=== PATIENT | female | born 1935 | race Caucasian/White ===

== ENCOUNTER 2018-09-07 05:28 | Inpatient (IN) | payer MEDICARE, MEDICAID | END 2018-09-10 15:15 | LOC: PAS IN 05:28 → ORTHO 4S 11:25 | PROC: 0SRD0J9 Replacement of Left Knee Joint with Synthetic Substitute, Cemented, Open Approach (ICD-10-PCS; principal; 2018-09-07 07:12) | DX: M17.12 Unilateral primary osteoarthritis, left knee (principal); I69.351 Hemiplegia and hemiparesis following cerebral infarction affecting right dominant side ==

== ENCOUNTER 2018-09-27 11:54 | Emergency (ER) | payer MEDICARE, MEDICAID ==
[~2018-09-27] VITALS: Ht 162.6 cm; Wt 90.9 kg
[~2018-09-27 11:54] MED LIST: ACET-812 PO; AMIO100T4 PO; ATOR10TA87 PO; CITA-311 PO; COU5T PO; NITR50CA4 PO; WARF10TA50 PO
[2018-09-27] MEDS ORDERED: COU5T PO ×2 (12:51)
[2018-09-27] MEDS ORDERED: GABA-532 PO (12:54)
[2018-09-27] MEDS ORDERED: LACTC PO (12:54)
[2018-09-27] MEDS ORDERED: CELE-193 PO (12:54)
[2018-09-27] MEDS ORDERED: MULT1CAP44 PO (13:02)
[2018-09-27] MEDS ORDERED: HYDR-4353 PO ×2 (13:02)
[2018-09-27 13:11] LABS: BASOPHILS % (AUTO) 0.3 % (0-1); EOSINOPHILS % (AUTO) 0.9 % (0-6); LYMPHOCYTES # (AUTO) 0.8 X10'3 (1.1-4.8); LYMPHOCYTES % (AUTO) 15.2 % (21-51); MEAN CORPUSCULAR HGB CONC 32.2 g/dL (33.0-36.5); MEAN CORPUSCULAR VOLUME 90.2 FL (78-98); MONOCYTES # (AUTO) 0.4 X10'3 (0-0.9); MONOCYTES % (AUTO) 8.1 % (2-12); NEUTROPHILS # (AUTO) 3.7 X10'3 (1.8-7.7); NEUTROPHILS % (AUTO) 75.5 % (42-75); PLATELET COUNT 308 X10'3 (140-440); RED BLOOD COUNT 3.43 X10'6 (4.20-5.60); RED CELL DISTRIBUTION WIDTH 16.6 % (11.5-14.5); WHITE BLOOD COUNT 4.9 X10'3 (4.5-11.0)
[2018-09-27 13:25] LABS: ALANINE AMINOTRANSFERASE 32 U/L (12-78); ALBUMIN 3.2 G/DL (3.4-5.0); ALKALINE PHOSPHATASE 95 IU/L (46-116); ANION GAP 9 (8-16); ASPARTATE AMINO TRANSFERASE 21 U/L (10-37); BILIRUBIN,TOTAL 0.5 MG/DL (0.1-1.0); BLOOD UREA NITROGEN 13 MG/DL (7-18); BUN/CREATININE RATIO 15.5 (6.6-38.0); CALCIUM 8.8 MG/DL (8.5-10.1); CHLORIDE 102 MMOL/L (99-107); CREATININE 0.84 MG/DL (0.40-0.90); GLUCOSE 104 MG/DL (70-104); POTASSIUM 4.1 MMOL/L (3.5-5.1); SODIUM 138 MMOL/L (135-145); TOTAL CARBON DIOXIDE 27.4 MMOL/L (24-32); TOTAL PROTEIN 6.5 G/DL (6.4-8.2); eGFR 65 ML/MIN
[2018-09-27 13:43] LABS: PROTHROMBIN TIME 48.5 SECONDS (9.0-12.0)
[2018-09-27 13:44] LABS: INR 5.2 INR; PARTIAL THROMBOPLASTIN TIME 50 SECONDS (22-32)
[2018-09-27 14:06] VITALS: BP 132/76
[2018-09-27] MEDS ORDERED: SENN-162 PO (14:09)
[2018-09-27] MEDS ORDERED: ASCO500C15 PO (14:09)
[2018-09-27] MEDS ORDERED: CRAN3875 PO (14:09)
--- NOTE | 2018-09-27 14:28 | NUR ---
assisted pt with a bedpan. she is moving well to assist. CT came to take her to scan but were in the middle of doing a bedpan. technical solutions consultant states she will come back in 10 min
[2018-09-27] MEDS ORDERED: HYDROcodone/acetaminophen 10/325mg tab PO ONE (15:25)
== END 2018-09-27 17:06 | disposition home or self-care (01) ==
LOC: ER 11:54
DX: S72.492A Other fracture of lower end of left femur, initial encounter for closed fracture (principal); R79.1 Abnormal coagulation profile; I48.91 Unspecified atrial fibrillation; F41.9 Anxiety disorder, unspecified; M19.90 Unspecified osteoarthritis, unspecified site; Z96.652 Presence of left artificial knee joint; Z79.899 Other long term (current) drug therapy; Z79.01 Long term (current) use of anticoagulants; X58.XXXA Exposure to other specified factors, initial encounter; Y93.89 Activity, other specified; Y92.89 Other specified places as the place of occurrence of the external cause; Y99.8 Other external cause status
CPT/HCPCS: 29505; 36415; 73564; 73700; 80053; 85025; 85610; 85730; 93971; 99285

== ENCOUNTER 2018-12-30 09:22 | Inpatient (IN) | payer MEDICARE, MEDICAID ==
[2018-12-24 12:47] LABS: BASOPHILS % (AUTO) 0.7 % (0-1); EOSINOPHILS # (AUTO) 0.2 X10'3 (0-0.9); EOSINOPHILS % (AUTO) 4.6 % (0-6); LYMPHOCYTES # (AUTO) 1.1 X10'3 (1.1-4.8); LYMPHOCYTES % (AUTO) 27.1 % (21-51); MEAN CORPUSCULAR HEMOGLOBIN 28.9 PG (27.0-31.0); MEAN CORPUSCULAR HGB CONC 33.2 g/dL (33.0-36.5); MEAN CORPUSCULAR VOLUME 86.9 FL (78-98); MEAN PLATELET VOLUME 9.1 FL (7.4-10.4); MONOCYTES # (AUTO) 0.3 X10'3 (0-0.9); MONOCYTES % (AUTO) 6.4 % (2-12); NEUTROPHILS # (AUTO) 2.5 X10'3 (1.8-7.7); NEUTROPHILS % (AUTO) 61.2 % (42-75); PRE OP HEMATOCRIT 32.7 % (35.0-45.0); PRE OP PLATELET COUNT 183 X10'3 (140-440); RED BLOOD COUNT 3.77 X10'6 (4.20-5.60); RED CELL DISTRIBUTION WIDTH 17.3 % (11.5-14.5)
[2018-12-24 12:48] LABS: CLARITY,URINE SLIGHTLY CLOUDY (Clear); COLOR,URINE YELLOW (Yellow); GLUCOSE, URINE NEGATIVE (Neg); KETONES,URINE NEGATIVE (Neg); LEUKOCYTE ESTERASE ,URINE MODERATE (Neg); NITRITES, URINE POSITIVE (Neg); OCCULT BLOOD,URINE SMALL (Neg); PROTEIN,URINE NEGATIVE (Neg); UROBILINOGEN,URINE 0.2 E.U/dL (0.2-1.0)
[2018-12-24 12:49] LABS: PRE OP HEMOGLOBIN 10.9 g/dL (12.0-16.0)
[2018-12-24 12:55] LABS: UA COLLECTION TYPE CLN CATCH MIDSTREAM
[2018-12-24 12:57] LABS: BACTERIA,URINE 4+ /HPF (Neg); MUCUS STRANDS NONE SEEN /LPF (Neg); SQUAMOUS EPITHELIAL CELL,UR FEW /LPF (FEW); WBC CLUMPS,URINE MODERATE /HPF (NEGATIVE); WBC,URINE TNTC /HPF (0-4)
[2018-12-24 12:58] LABS: PRE OP PROTIME 18.1 SECONDS (9.0-12.0)
[2018-12-24 12:59] LABS: PRE OP INR 1.8 INR
[2018-12-24 13:00] LABS: ALBUMIN 3.9 G/DL (3.4-5.0); ALBUMIN/GLOBULIN RATIO 1.2 (1.1-1.5); ALKALINE PHOSPHATASE 103 IU/L (46-116); BLOOD UREA NITROGEN 13 MG/DL (7-18); BUN/CREATININE RATIO 17.3 (6.6-38.0); CHLORIDE 103 MMOL/L (99-107); CREATININE 0.75 MG/DL (0.40-0.90); PRE OP ALT 18 U/L (30-65); PRE OP ANION GAP 5 (8-16); PRE OP AST 17 U/L (10-37); PRE OP BILIRUB, TOTAL 0.5 MG/DL (0.0-1.0); PRE OP GLUCOSE 92 MG/DL (70-104); PRE OP POTASSIUM 3.6 MMOL/L (3.4-5.1); PRE OP SODIUM 139 MMOL/L (135-145); TOTAL CARBON DIOXIDE 30.7 MMOL/L (24-32); TOTAL PROTEIN 7.2 G/DL (6.4-8.2); eGFR 74 ML/MIN
[~2018-12-30] VITALS: Ht 162.6 cm; Wt 86.2 kg
[2018-12-30] VITALS (19 sets, daily range): BP systolic 87–143; BP diastolic 34–65
[~2018-12-30 09:22] MED LIST changes: +ACET-2119 PO; -ACET-812 PO; +CELE-193 PO; +FURO80TA87 PO; +GABA-532 PO; +HYDR-4353 PO; +LIDO700A47 TOP; +POLY17PO10 PO; +POTA10TA10 PO; -WARF10TA50 PO; +acetaminophen 325mg tablet PO ONE; +celeCOXIB 100mg capsule PO ONE; +famotidine 20mg tablet PO ONE; +gabapentin 300mg capsule PO ONE; +metoclopramide 5 mg/ml inj IV ONE; +ringers solution, lacted 1,000 ML IV SCH; +tranexamic acid inj. 1,000 MG in normal saline 100 ML IV ONE
[2018-12-30] MEDS ORDERED: vancomycin inj 1,500 MG in normal saline 300ml IV soln IV ONE (10:00)
[2018-12-30] MEDS ORDERED: VANCOMYCIN IV ONE (10:00)
[2018-12-30] MEDS ORDERED: cefazolin/dext.iso 2gm/100 ML IV ONE (10:00)
[2018-12-30] MEDS ORDERED: NORMAL SALINE IV ONE (10:00)
[2018-12-30 10:24] LABS: PRE OP INR 1.1 INR; PRE OP PROTIME 10.7 SECONDS (9.0-12.0)
[2018-12-30] MEDS ORDERED: ENOX80DI8 SQ (10:42)
[2018-12-30] MEDS ORDERED: epiNEPHrine 1 mg/ml inj ONE (11:12)
[2018-12-30] MEDS ORDERED: ROPIVAcaine 0.5% (5mg/ml) 30ml vial ONE ×2 (11:12→14:53)
[2018-12-30] MEDS ORDERED: vancomycin 1,000mg inj ONE (11:12)
[2018-12-30] MEDS ORDERED: ketorolac trometh. 30mg/ml inj. ONE (11:12)
[2018-12-30] MEDS ORDERED: tetracaine 1% (10mg/ml) pres. free inj. ONE (12:22)
[2018-12-30] MEDS ORDERED: fentaNYL/PF 50MCG/1 ML 2ML syringe ONE (12:26)
[2018-12-30] MEDS ORDERED: MIDAZolam 1mg/ml 10ml vial ONE (12:26)
[2018-12-30] MEDS ORDERED: morphine /PF 1mg/ml 10ml inj. ONE (12:26)
[2018-12-30] MEDS ORDERED: HYDROmorphone inj. 0.5 MG/0.5 ML DISP.SYRIN IV PRN (12:30)
[2018-12-30] MEDS ORDERED: bisacodyl 10mg suppository rectal RC PRN (12:30)
[2018-12-30] MEDS ORDERED: HYDROmorphone 1 mg/ml syringe IV PRN (12:30)
[2018-12-30] MEDS ORDERED: ondansetron/PF 4mg/2ml inj IV PRN ×3 (12:30→13:50)
[2018-12-30] MEDS ORDERED: diphenhydrAMINE 25mg capsule PO PRN ×2 (12:30)
[2018-12-30] MEDS ORDERED: magnesium hydroxide 30ml (MOM) UD suspension PO PRN (12:30)
[2018-12-30] MEDS ORDERED: potassium chloride 10mEq ER tablet PO PRN (12:30)
[2018-12-30] MEDS ORDERED: acetaminophen 325mg tablet PO PRN (12:30)
[2018-12-30] MEDS: gabapentin 300mg capsule PO SCH ×2 (13:00→20:32)
[2018-12-30] MEDS ORDERED: naloxone 2mg/2ml inj 2 MG in normal saline 500ml IV soln 500 ML IV PRN (13:48)
[2018-12-30] MEDS ORDERED: ringers solution, lacted 1,000 ML IV SCH (13:48)
[2018-12-30] MEDS ORDERED: diphenhydrAMINE 50 mg/ml inj IV PRN (13:50)
[2018-12-30] MEDS ORDERED: meperidine/PF 25mg/ml syringe IV PRN ×3 (13:50)
[2018-12-30] MEDS ORDERED: morphine 4 MG/ML inj SYRINge IV PRN ×2 (13:50)
[2018-12-30] MEDS ORDERED: proCHLORperazine 10 MG/2 ml inj IV PRN (13:50)
[2018-12-30] MEDS: ROPIVAcaine 0.2%/PF PAIN PUMP 400 ML IJ SCH (13:53)
--- NOTE | 2018-12-30 15:30 | NUR ---
Received from OR via bed, accompanied by Anesthesiologist. Report received. Initial physical assessment done and recorded.
--- NOTE | 2018-12-30 17:00 | NUR ---
Discharge criteria met, report to receiving floor. Transferred to room in stable condition.
[2018-12-30] MEDS: potassium cl 20mEq in 1/2 NS 1,000 ML IV SCH ×2 (17:54→20:30)
--- NOTE | 2018-12-30 18:15 | NUR ---
Patient in room ORTHO 4021B. I have received report from SIMEON Field and had the opportunity to ask questions and assume patient care.
--- NOTE | 2018-12-30 18:15 | NUR ---
Problems reprioritized. Patient report given, questions answered & plan of care reviewed with Whit dior RN.
[2018-12-30] MEDS: cefazolin/dext.iso 2gm/100ml 100 ML IV SCH ×2 (18:23→23:00)
[2018-12-30] MEDS ORDERED: tranexamic acid inj. 900 MG in normal saline 100ml IV soln 100 ML IV ONE (18:30)
[2018-12-30] MEDS ORDERED: normal saline 500ml IV soln 500 ML IV ONE (18:50)
[2018-12-30] MEDS: ascorbic acid 500mg tablet PO SCH (19:27)
[2018-12-30] MEDS: oxyCODONE/APAP 5-325mg tablet PO PRN ×2 (19:28→23:07)
[2018-12-30 19:39] LABS: HEMATOCRIT 24.9 % (35.0-45.0); HEMOGLOBIN 8.1 g/dl (12.0-16.0); MEAN CORPUSCULAR HGB CONC 32.7 g/dL (33.0-36.5); MEAN CORPUSCULAR VOLUME 88.7 FL (78-98); PLATELET COUNT 120 X10'3 (140-440); RED BLOOD COUNT 2.81 X10'6 (4.20-5.60); RED CELL DISTRIBUTION WIDTH 17.3 % (11.5-14.5); WHITE BLOOD COUNT 7.5 X10'3 (4.5-11.0)
[2018-12-30] MEDS: atorvastatin 10mg tablet PO SCH (20:32)
[2018-12-30] MEDS: nitrofurantoin macrocrystal 50mg capsule PO SCH (20:33)
[2018-12-30] MEDS: sennosides 8.6mg tablet PO SCH (20:33)
[2018-12-31] MEDS ORDERED: VANCOMYCIN IV ONE ×2
[2018-12-31] MEDS ORDERED: NORMAL SALINE IV ONE ×2
[2018-12-31 02:02] VITALS: BP 121/50
[2018-12-31] MEDS: potassium cl 20mEq in 1/2 NS 1,000 ML IV SCH ×4 (04:30→22:16)
[2018-12-31] MEDS: oxyCODONE/APAP 5-325mg tablet PO PRN ×5 (05:00→22:33)
[2018-12-31 06:00] VITALS: BP 131/53
--- NOTE | 2018-12-31 06:15 | NUR ---
Patient in room ORTHO 4021. I have received report from MOISES HENDRIX and had the opportunity to ask questions and assume patient care.
--- NOTE | 2018-12-31 06:23 | NUR ---
Problems reprioritized. Patient report given, questions answered & plan of care reviewed with SIMEON Kaur.
[2018-12-31 07:03] LABS: BASOPHILS % (AUTO) 0.3 % (0-1); EOSINOPHILS % (AUTO) 0 % (0-6); HEMATOCRIT 26.6 % (35.0-45.0); HEMOGLOBIN 8.5 g/dl (12.0-16.0); LYMPHOCYTES # (AUTO) 0.4 X10'3 (1.1-4.8); LYMPHOCYTES % (AUTO) 8.2 % (21-51); MEAN CORPUSCULAR HEMOGLOBIN 28.6 PG (27.0-31.0); MEAN CORPUSCULAR VOLUME 89.5 FL (78-98); MEAN PLATELET VOLUME 9.2 FL (7.4-10.4); MONOCYTES # (AUTO) 0.2 X10'3 (0-0.9); NEUTROPHILS # (AUTO) 4.6 X10'3 (1.8-7.7); NEUTROPHILS % (AUTO) 88.5 % (42-75); PLATELET COUNT 113 X10'3 (140-440); RED BLOOD COUNT 2.97 X10'6 (4.20-5.60); RED CELL DISTRIBUTION WIDTH 17.2 % (11.5-14.5); WHITE BLOOD COUNT 5.2 X10'3 (4.5-11.0)
[2018-12-31 07:32] LABS: ANION GAP 9 (8-16); CHLORIDE 107 MMOL/L (99-107); POTASSIUM 4.5 MMOL/L (3.5-5.1); SODIUM 138 MMOL/L (135-145); TOTAL CARBON DIOXIDE 21.8 MMOL/L (24-32)
[2018-12-31] MEDS: amiodarone 100mg tablet PO SCH (08:00)
[2018-12-31] MEDS: multivitamins, therapeutics tablet PO SCH (08:00)
[2018-12-31] MEDS: gabapentin 300mg capsule PO SCH ×3 (08:00→19:38)
[2018-12-31] MEDS: CITALOpram 10mg tablet PO SCH (08:00)
[2018-12-31] MEDS: celeCOXIB 100mg capsule PO SCH (08:00)
[2018-12-31] MEDS: ascorbic acid 500mg tablet PO SCH ×2 (08:00→19:39)
[2018-12-31] MEDS: cefazolin/dext.iso 2gm/100ml 100 ML IV SCH (08:00)
[2018-12-31] MEDS: furosemide 40mg tablet PO SCH (08:00)
[2018-12-31 10:00] VITALS: BP 111/46
--- NOTE | 2018-12-31 11:00 | NUR ---
PATIENT HAS TIMES OF CONFUSION, SPOKE WITH DAUGHTER AND SHE SAID PATIENT HAS CONFUSING WITH PAIN MEDICATIONS.
--- NOTE | 2018-12-31 13:22 | NUR ---
CALLED DR MOONEY REGARDING LEAVING THE WOOD CATHETER IN FOR ONE MORE DAY.
[2018-12-31 18:00] VITALS: BP 105/40
--- NOTE | 2018-12-31 18:10 | NUR ---
Problems reprioritized. Patient report given, questions answered & plan of care reviewed with ALIX HENDRIX.
[2018-12-31] MEDS: nitrofurantoin macrocrystal 50mg capsule PO SCH (19:38)
[2018-12-31] MEDS: sennosides 8.6mg tablet PO SCH (19:38)
[2018-12-31] MEDS: atorvastatin 10mg tablet PO SCH (19:39)
[2018-12-31] MEDS: warfarin 5mg tablet PO SCH (21:36)
[2018-12-31 22:00] VITALS: BP 127/55
[2019-01-01] MEDS: potassium cl 20mEq in 1/2 NS 1,000 ML IV SCH (04:30)
[2019-01-01] MEDS: oxyCODONE/APAP 5-325mg tablet PO PRN ×5 (04:55→21:20)
[2019-01-01 06:00] VITALS: BP 122/51
--- NOTE | 2019-01-01 06:20 | NUR ---
Patient in room ORTHO 4021. I have received report from Kiesha HENDRIX and had the opportunity to ask questions and assume patient care.
--- NOTE | 2019-01-01 06:42 | NUR ---
REPORT TO SHADY HENDRIX
[2019-01-01 07:28] LABS: BASOPHILS % (AUTO) 0.4 % (0-1); EOSINOPHILS # (AUTO) 0.1 X10'3 (0-0.9); EOSINOPHILS % (AUTO) 0.8 % (0-6); HEMATOCRIT 25.1 % (35.0-45.0); LYMPHOCYTES # (AUTO) 1.6 X10'3 (1.1-4.8); MEAN CORPUSCULAR HEMOGLOBIN 28.8 PG (27.0-31.0); MEAN CORPUSCULAR HGB CONC 32.1 g/dL (33.0-36.5); MEAN CORPUSCULAR VOLUME 89.6 FL (78-98); MEAN PLATELET VOLUME 9.1 FL (7.4-10.4); MONOCYTES # (AUTO) 0.6 X10'3 (0-0.9); MONOCYTES % (AUTO) 8.4 % (2-12); NEUTROPHILS # (AUTO) 4.7 X10'3 (1.8-7.7); NEUTROPHILS % (AUTO) 67.4 % (42-75); PLATELET COUNT 138 X10'3 (140-440); RED CELL DISTRIBUTION WIDTH 17.7 % (11.5-14.5)
[2019-01-01] MEDS: celeCOXIB 100mg capsule PO SCH (07:31)
[2019-01-01] MEDS: CITALOpram 10mg tablet PO SCH (07:31)
[2019-01-01] MEDS: amiodarone 100mg tablet PO SCH (07:36)
[2019-01-01] MEDS: furosemide 40mg tablet PO SCH (07:37)
[2019-01-01] MEDS: multivitamins, therapeutics tablet PO SCH (07:37)
[2019-01-01] MEDS: gabapentin 300mg capsule PO SCH ×3 (07:37→19:05)
[2019-01-01] MEDS: ascorbic acid 500mg tablet PO SCH ×2 (07:40→20:00)
[2019-01-01 10:00] VITALS: BP 93/57
[2019-01-01] MEDS: ROPIVAcaine 0.2%/PF PAIN PUMP 400 ML IJ SCH (13:53)
--- NOTE | 2019-01-01 14:20 | NUR ---
Entered room and informed pt and pt's daughter of order to DC f/c. Pt's daughter said that she wants pt to have f/c in 1 more day as pt is painful and not moving well. Informed pt and pt's daughter of risks of leaving f/c in and potential for CAUTI as well as joint infection if f/c left in. Pt and pt's daughter said pt is on an antibiotic orally every night for to prevent UTI. Informed of other alternatives to f/c such as WIC and bedpan. pt's daughter still refused to have f/c out. Informed her of f/c care and education.
--- NOTE | 2019-01-01 14:33 | NUR ---
Charge nurse/primary nurse provided thrasher catheter education to pt and daughter re removing catheter per protocol. Daughter refused to let studio operations engineer in charge/primary RN remove thrasher catheter citing pt was in too much pain and could not move her surgical knee well. Pt and family were advised of the risks associated with leaving catheter in (cauti) and other options that were available. Pt and daughter adamantly refused to use another option such as a wick or bedpan, and have the thrasher catheter removed. Pt and family verbalized understanding of possible adverse outcomes (cauti), infection.
[2019-01-01 18:00] VITALS: BP 113/47
--- NOTE | 2019-01-01 18:12 | NUR ---
Problems reprioritized. Patient report given, questions answered & plan of care reviewed with Jeimy Gay RN.
[2019-01-01] MEDS: atorvastatin 10mg tablet PO SCH (18:55)
[2019-01-01] MEDS: nitrofurantoin macrocrystal 50mg capsule PO SCH (18:55)
[2019-01-01] MEDS: sennosides 8.6mg tablet PO SCH (18:56)
[2019-01-01] MEDS: warfarin 5mg tablet PO SCH (18:57)
--- NOTE | 2019-01-01 19:00 | NUR ---
Patient's daughter at bedside. She reiterated that she was aware of risks of keeping FC in and that she wanted it to "stay in until PT can teach her mother how to get to [facility]." She explained to me that "it took 3 people to get her up". I informed her that my plan was to take it out in the morning, right before PT comes in. She seemed to accept this with no problem.
[2019-01-01 22:30] VITALS: BP 114/47
[2019-01-02] MEDS: oxyCODONE/APAP 5-325mg tablet PO PRN ×5 (01:18→18:53)
[2019-01-02 05:31] LABS: BASOPHILS % (AUTO) 0.4 % (0-1); EOSINOPHILS # (AUTO) 0.1 X10'3 (0-0.9); EOSINOPHILS % (AUTO) 1.9 % (0-6); HEMOGLOBIN 7.4 g/dl (12.0-16.0); MEAN CORPUSCULAR HGB CONC 34.2 g/dL (33.0-36.5); MEAN CORPUSCULAR VOLUME 87.7 FL (78-98); MEAN PLATELET VOLUME 9.6 FL (7.4-10.4); MONOCYTES # (AUTO) 0.6 X10'3 (0-0.9); MONOCYTES % (AUTO) 11.2 % (2-12); NEUTROPHILS # (AUTO) 3.5 X10'3 (1.8-7.7); NEUTROPHILS % (AUTO) 67.5 % (42-75); PLATELET COUNT 114 X10'3 (140-440); RED BLOOD COUNT 2.47 X10'6 (4.20-5.60); RED CELL DISTRIBUTION WIDTH 17.4 % (11.5-14.5); WHITE BLOOD COUNT 5.1 X10'3 (4.5-11.0)
--- NOTE | 2019-01-02 05:39 | NUR ---
Patient got Percocet (1 tab) throughout the night, with no complaints of pain. Medicated her with 2 tabs this AM, so she will not have any problems tolerating PT training to the [facility].
[2019-01-02 06:05] LABS: HEMATOCRIT 21.7 % (35.0-45.0)
--- NOTE | 2019-01-02 06:26 | NUR ---
Problems reprioritized. Patient report given, questions answered & plan of care reviewed with SIMEON Ann.
--- NOTE | 2019-01-02 06:50 | NUR ---
Received report from Jeimy HENDRIX
[2019-01-02 07:21] VITALS: BP 121/43
[2019-01-02] MEDS: furosemide 40mg tablet PO SCH (08:00)
[2019-01-02] MEDS: ascorbic acid 500mg tablet PO SCH ×3 (08:00→20:00)
[2019-01-02] MEDS: CITALOpram 10mg tablet PO SCH (08:12)
[2019-01-02] MEDS: multivitamins, therapeutics tablet PO SCH (08:12)
[2019-01-02] MEDS: gabapentin 300mg capsule PO SCH ×3 (08:13→21:00)
[2019-01-02] MEDS: celeCOXIB 100mg capsule PO SCH (08:13)
[2019-01-02] MEDS: amiodarone 100mg tablet PO SCH (08:13)
[2019-01-02 11:50] VITALS: BP 124/48
--- NOTE | 2019-01-02 16:24 | NUR ---
Had a critical H&H tried calling dr. Silverio and it went straight to voicemail. also looked at chart and Dr. Sloan wrote a note that he saw the patient. But the patient stated that she never spoke to any Dr, nor did I see dr. Sloan at all. Patient is not symtomatic at all and is AxOX4.
[2019-01-02 18:00] VITALS: BP 144/74
--- NOTE | 2019-01-02 18:40 | NUR ---
DANISHA'D VERBAL REPORT FROM MIQUEL HENDRIX
[2019-01-02] MEDS: warfarin 5mg tablet PO SCH (21:00)
[2019-01-02] MEDS: nitrofurantoin macrocrystal 50mg capsule PO SCH (21:00)
[2019-01-02] MEDS: sennosides 8.6mg tablet PO SCH (21:00)
[2019-01-02] MEDS: atorvastatin 10mg tablet PO SCH (21:00)
[2019-01-02 22:00] VITALS: BP 123/60
--- NOTE | 2019-01-03 03:05 | NUR ---
213 PATIENT WAS SLEEPING AND WHEN I WENT TO GIVE HER NIGHT TIME MEDS, PATIENT REFUSED THEM SAYING SHE DIDN'T FEEL GOOD AND DIDN'T WANT THEM TONIGHT,
[2019-01-03] MEDS: oxyCODONE/APAP 5-325mg tablet PO PRN ×5 (05:24→21:27)
[2019-01-03 06:00] VITALS: BP 143/57
--- NOTE | 2019-01-03 06:11 | NUR ---
RECEIVED REPORT FROM SIMEON THOMSON
--- NOTE | 2019-01-03 06:40 | NUR ---
REPORT TO EARLY SHIFT RNCARMEN
[2019-01-03] MEDS: multivitamins, therapeutics tablet PO SCH (07:53)
[2019-01-03] MEDS: amiodarone 100mg tablet PO SCH (07:54)
[2019-01-03] MEDS: gabapentin 300mg capsule PO SCH ×3 (07:54→21:01)
[2019-01-03] MEDS: celeCOXIB 100mg capsule PO SCH (07:55)
[2019-01-03] MEDS: CITALOpram 10mg tablet PO SCH (07:55)
[2019-01-03] MEDS: ascorbic acid 500mg tablet PO SCH ×2 (07:59→20:00)
[2019-01-03] MEDS: furosemide 40mg tablet PO SCH (07:59)
[2019-01-03 08:34] LABS: BASOPHILS % (AUTO) 0.5 % (0-1); EOSINOPHILS # (AUTO) 0.2 X10'3 (0-0.9); EOSINOPHILS % (AUTO) 3.2 % (0-6); HEMOGLOBIN 7.6 g/dl (12.0-16.0); LYMPHOCYTES # (AUTO) 0.9 X10'3 (1.1-4.8); LYMPHOCYTES % (AUTO) 17.4 % (21-51); MEAN CORPUSCULAR HGB CONC 33.1 g/dL (33.0-36.5); MEAN CORPUSCULAR VOLUME 87.6 FL (78-98); MEAN PLATELET VOLUME 9.8 FL (7.4-10.4); MONOCYTES # (AUTO) 0.5 X10'3 (0-0.9); MONOCYTES % (AUTO) 9.3 % (2-12); NEUTROPHILS # (AUTO) 3.6 X10'3 (1.8-7.7); NEUTROPHILS % (AUTO) 69.6 % (42-75); PLATELET COUNT 120 X10'3 (140-440); RED BLOOD COUNT 2.62 X10'6 (4.20-5.60); RED CELL DISTRIBUTION WIDTH 17.8 % (11.5-14.5); WHITE BLOOD COUNT 5.1 X10'3 (4.5-11.0)
[2019-01-03 10:21] VITALS: BP 131/50
[2019-01-03] MEDS: ROPIVAcaine 0.2%/PF PAIN PUMP 400 ML IJ SCH (13:53)
--- NOTE | 2019-01-03 18:23 | NUR ---
gave report to ramona cervantes and ramona fay
--- NOTE | 2019-01-03 18:36 | NUR ---
RECEIVED REPORT FROM CARMEN HENDRIX AND ASSUMED PATIENT CARE WITH ORIENTING SIMEON DANIESL
[2019-01-03] MEDS: sennosides 8.6mg tablet PO SCH (20:59)
[2019-01-03] MEDS ORDERED: warfarin 5mg tablet PO SCH (21:00)
[2019-01-03] MEDS: atorvastatin 10mg tablet PO SCH (21:01)
[2019-01-03] MEDS: nitrofurantoin macrocrystal 50mg capsule PO SCH (21:01)
[2019-01-03 22:00] VITALS: BP 119/52
[2019-01-04] MEDS: oxyCODONE/APAP 5-325mg tablet PO PRN ×3 (04:44→14:04)
--- NOTE | 2019-01-04 06:26 | NUR ---
Problems reprioritized. Patient report given to Sonia HENDRIX, questions answered & plan of care reviewed.
--- NOTE | 2019-01-04 06:30 | NUR ---
Patient in room ORTHO 4016. I have received report from Veronika/Sivan and had the opportunity to ask questions and assume patient care.
[2019-01-04 06:54] LABS: BASOPHILS % (AUTO) 0.5 % (0-1); EOSINOPHILS # (AUTO) 0.2 X10'3 (0-0.9); EOSINOPHILS % (AUTO) 4.1 % (0-6); HEMATOCRIT 23.3 % (35.0-45.0); HEMOGLOBIN 7.7 g/dl (12.0-16.0); LYMPHOCYTES # (AUTO) 0.9 X10'3 (1.1-4.8); LYMPHOCYTES % (AUTO) 21.1 % (21-51); MEAN CORPUSCULAR HEMOGLOBIN 28.9 PG (27.0-31.0); MEAN CORPUSCULAR HGB CONC 33.1 g/dL (33.0-36.5); MEAN CORPUSCULAR VOLUME 87.3 FL (78-98); MEAN PLATELET VOLUME 9.2 FL (7.4-10.4); MONOCYTES # (AUTO) 0.3 X10'3 (0-0.9); MONOCYTES % (AUTO) 7.7 % (2-12); NEUTROPHILS # (AUTO) 2.8 X10'3 (1.8-7.7); NEUTROPHILS % (AUTO) 66.6 % (42-75); PLATELET COUNT 142 X10'3 (140-440); RED BLOOD COUNT 2.67 X10'6 (4.20-5.60); RED CELL DISTRIBUTION WIDTH 17.9 % (11.5-14.5); WHITE BLOOD COUNT 4.2 X10'3 (4.5-11.0)
[2019-01-04] MEDS: celeCOXIB 100mg capsule PO SCH (07:40)
[2019-01-04] MEDS: amiodarone 100mg tablet PO SCH (07:41)
[2019-01-04] MEDS: multivitamins, therapeutics tablet PO SCH (07:41)
[2019-01-04] MEDS: CITALOpram 10mg tablet PO SCH (07:41)
[2019-01-04] MEDS: gabapentin 300mg capsule PO SCH ×2 (07:41→14:09)
[2019-01-04] MEDS: ascorbic acid 500mg tablet PO SCH (07:43)
[2019-01-04] MEDS: furosemide 40mg tablet PO SCH (07:43)
--- NOTE | 2019-01-04 14:30 | NUR ---
Received discharge orders from KWESI Fisher. Pt to transfer to [facility] per pt & daughter's request. Saline lock discontinued from [facility] with cannula intact. No redness/swelling at insertion site. Pressure applied and Bandaid applied after brief hold using 2x2 gauze. Dressing change left leg prior to discharge. Old dressing removed. Small amount of serosanguineous drainage on old drainage. Left leg incision clean & dry. Small amount of ecchymosis at top of incision on left leg. AMIE drain left intact. Island dressing applied to LLE. Pt tolerated well. Report called to SIMEON Barton at [facility]. Pt discharged via [facility] at 1430 to [facility].
--- NOTE | 2019-01-04 15:46 | NUR ---
Pt is anxious and attempting to crawl out of the bed at all times. Pt putting legs over side of bed. Disoriented to place/time earlier today but understands he is in the hospital at this time. Attempting to calm pt down approximately every 2 minutes. Removing clothing and throwing nectarines his brought in onto the floor. Wrapped plastic bag that mandarins were in around trapeze. called. visited earlier today as well as pts best friend. Pt recognized his best friend and , but according to he was extremely confused during her 2 hour visit with him. is concerned regarding memory and pts anxiousness. No other neuro deficits noted at this time. Page sent to to discuss pts status.
--- NOTE | 2019-01-04 15:56 | NUR ---
Previous note written on the wrong patient.
--- NOTE | 2019-01-04 16:23 | NUR ---
Hourly Rounding Notes documented were written on the wrong patient from [id number].
== END 2019-01-04 14:55 | DRG 467 ==
LOC: PAS IN 09:22 → EDSTATUS 12:15 → ORTHO 4S 17:00
PROVIDERS: ADMIT Orthopaedic Surgery; ATTEND Orthopaedic Surgery
PROC: 0SRU0J9 Replacement of Left Knee Joint, Femoral Surface with Synthetic Substitute, Cemented, Open Approach (ICD-10-PCS; 2018-12-30)
PROC: 0MQP0ZZ Repair Left Knee Bursa and Ligament, Open Approach (ICD-10-PCS; 2018-12-30)
PROC: 0SPU0JZ Removal of Synthetic Substitute from Left Knee Joint, Femoral Surface, Open Approach (ICD-10-PCS; principal; 2018-12-30 12:21)
PROC: 3E0T3BZ Introduction of Anesthetic Agent into Peripheral Nerves and Plexi, Percutaneous Approach (ICD-10-PCS; 2019-01-03)
DX: M97.12XA Periprosthetic fracture around internal prosthetic left knee joint, initial encounter (principal); D62 Acute posthemorrhagic anemia; I69.351 Hemiplegia and hemiparesis following cerebral infarction affecting right dominant side; I25.10 Atherosclerotic heart disease of native coronary artery without angina pectoris; I48.91 Unspecified atrial fibrillation; M96.662 Fracture of femur following insertion of orthopedic implant, joint prosthesis, or bone plate, left leg; I10 Essential (primary) hypertension; Z96.651 Presence of right artificial knee joint; F41.9 Anxiety disorder, unspecified; E78.5 Hyperlipidemia, unspecified; Z95.5 Presence of coronary angioplasty implant and graft; Z79.899 Other long term (current) drug therapy
CPT/HCPCS: 36415; 73560; 80051; 80053; 81001; 82948; 85025; 85027; 85610; 85730; 86885; 86900; 86901; 87070; 87077; 87088; 87186; 97110; 97116; 97162; 97530; A6455; A7000; A9272; C1713; C1758; C1776; G0378; J0171; J0690; J1170; J1885; J2250; J2274; J2765; J2795; J3010; J3370; J7030; J7120; L1832

== ENCOUNTER 2021-08-15 15:45 | Outpatient (CLI) | payer MEDICARE, MEDICAID ==
[~2021-08-15 15:45] MED LIST changes: -ACET-2119 PO; -COU5T PO; +ENOX80DI8 SQ; -POLY17PO10 PO; +POTA-188 PO; -POTA10TA10 PO; +WARF-113 PO; -acetaminophen 325mg tablet PO ONE; -celeCOXIB 100mg capsule PO ONE; -famotidine 20mg tablet PO ONE; -gabapentin 300mg capsule PO ONE; -metoclopramide 5 mg/ml inj IV ONE; -ringers solution, lacted 1,000 ML IV SCH; -tranexamic acid inj. 1,000 MG in normal saline 100 ML IV ONE
[2021-08-15 16:08] LABS: BASOPHILS % (AUTO) 0.8 % (0-1); EOSINOPHILS # (AUTO) 0.1 X10'3 (0-0.9); EOSINOPHILS % (AUTO) 1.2 % (0-6); HEMATOCRIT 34.1 % (35.0-45.0); HEMOGLOBIN 11.2 g/dl (12.0-16.0); LYMPHOCYTES % (AUTO) 22.4 % (21-51); MEAN CORPUSCULAR HEMOGLOBIN 29.3 PG (27.0-31.0); MEAN CORPUSCULAR HGB CONC 32.8 g/dL (33.0-36.5); MEAN CORPUSCULAR VOLUME 89.1 FL (78-98); MEAN PLATELET VOLUME 9.1 FL (7.4-10.4); MONOCYTES # (AUTO) 0.3 X10'3 (0-0.9); MONOCYTES % (AUTO) 6.8 % (2-12); NEUTROPHILS # (AUTO) 3.2 X10'3 (1.8-7.7); NEUTROPHILS % (AUTO) 68.8 % (42-75); PLATELET COUNT 192 X10'3 (140-440); RED BLOOD COUNT 3.83 X10'6 (4.20-5.60); RED CELL DISTRIBUTION WIDTH 16.2 % (11.5-14.5); WHITE BLOOD COUNT 4.7 X10'3 (4.5-11.0)
[2021-08-15 16:20] LABS: ALBUMIN 3.9 G/DL (3.4-5.0); ANION GAP 8 (8-16); APTT 35 SECONDS (22-32); BLOOD UREA NITROGEN 15 MG/DL (7-18); BUN/CREATININE RATIO 16.5 (6.6-38.0); CALCIUM 8.9 MG/DL (8.5-10.1); CHLORIDE 104 MMOL/L (99-107); CREATININE 0.91 MG/DL (0.40-0.90); GLUCOSE 90 MG/DL (70-104); POTASSIUM 4.2 MMOL/L (3.5-5.1); SODIUM 140 MMOL/L (135-145); TOTAL CARBON DIOXIDE 28.1 MMOL/L (24-32); eGFR 58 ML/MIN
[2021-08-20] MEDS ORDERED: nitroGLYCERIN-Tridil 50MG/D5W 250 ML IV ONE (15:23)
[2021-08-20] MEDS ORDERED: heparin 1,000unit/ml 10ml vial 10 ML ONE (15:24)
[2021-08-20] MEDS ORDERED: verapamil 2.5 mg/ml inj IV ONE (15:24)
[2021-08-20] MEDS ORDERED: iohexol 350MG/ML 100ml bottle IV ONE (15:24)
[2021-08-20] MEDS ORDERED: LIDOcaine 1% (10mg/ml)w/preservative injection 20ml MDV ONE (15:24)
[2021-08-20] MEDS ORDERED: fentaNYL/PF 50MCG/1 ML 2ML syringe ONE (15:24)
[2021-08-20] MEDS ORDERED: midazolam 1 mg/ML 2ml injection ONE (15:24)
[2021-08-20] MEDS ORDERED: iohexol 350 MG/ML 50ML vial IV ONE (17:55)
== END 2021-08-15 23:59 | disposition home or self-care (01) ==
LOC: LAB 15:45 → EDSTATUS 08-20 15:30
PROVIDERS: ATTEND Internal Medicine Interventional Cardiology
DX: I48.0 Paroxysmal atrial fibrillation (principal); Z79.01 Long term (current) use of anticoagulants
CPT/HCPCS: 36415; 80048; 85025; 85610; 85730; J1644; J2250; J3010; J3490; Q9967

== ENCOUNTER 2021-08-19 08:00 | Inpatient (IN) | payer MEDICARE, MEDICAID ==
[~2021-08-19] VITALS: Ht 167.6 cm; Wt 88.3 kg
--- NOTE | 2021-08-19 08:23 | NUR ---
Patient reports right knee pain since last night, worse when weight bearing; denies injury or fall. 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
--- NOTE | 2021-08-19 08:30 | NUR ---
Patient assisted to bedside commode; needs two assists due to right knee pain.
[2021-08-19 08:51] LABS: BASOPHILS % (AUTO) 0.5 % (0-1); EOSINOPHILS % (AUTO) 0.4 % (0-6); HEMOGLOBIN 11.8 g/dl (12.0-16.0); LYMPHOCYTES # (AUTO) 1.1 X10'3 (1.1-4.8); LYMPHOCYTES % (AUTO) 16.1 % (21-51); MEAN CORPUSCULAR HEMOGLOBIN 29.4 PG (27.0-31.0); MEAN CORPUSCULAR HGB CONC 32.7 g/dL (33.0-36.5); MEAN PLATELET VOLUME 8.9 FL (7.4-10.4); MONOCYTES # (AUTO) 0.4 X10'3 (0-0.9); MONOCYTES % (AUTO) 6.7 % (2-12); NEUTROPHILS % (AUTO) 76.3 % (42-75); PLATELET COUNT 197 X10'3 (140-440); RED CELL DISTRIBUTION WIDTH 16.2 % (11.5-14.5); WHITE BLOOD COUNT 6.5 X10'3 (4.5-11.0)
[2021-08-19 09:05] LABS: APTT 35 SECONDS (22-32)
[2021-08-19 09:07] LABS: ALANINE AMINOTRANSFERASE 20 U/L (12-78); ALBUMIN 4.1 G/DL (3.4-5.0); ALBUMIN/GLOBULIN RATIO 1.3 (1.1-1.5); ALKALINE PHOSPHATASE 112 IU/L (46-116); ANION GAP 8 (8-16); ASPARTATE AMINO TRANSFERASE 19 U/L (10-37); BILIRUBIN,TOTAL 1.2 MG/DL (0.1-1.0); BLOOD UREA NITROGEN 9 MG/DL (7-18); BUN/CREATININE RATIO 9.9 (6.6-38.0); CALCIUM 9.1 MG/DL (8.5-10.1); CHLORIDE 102 MMOL/L (99-107); CREATININE 0.91 MG/DL (0.40-0.90); GLUCOSE 108 MG/DL (70-104); POTASSIUM 3.8 MMOL/L (3.5-5.1); SODIUM 139 MMOL/L (135-145); TOTAL CARBON DIOXIDE 28.9 MMOL/L (24-32); TOTAL PROTEIN 7.3 G/DL (6.4-8.2); eGFR 58 ML/MIN
[2021-08-19 09:16] LABS: MAGNESIUM 1.9 MG/DL (1.5-2.4)
--- NOTE | 2021-08-19 09:45 | NUR ---
Patient assisted to bedside commode with two assists. Unable to bear weight on right knee.
[2021-08-19] MEDS ORDERED: WARF7.5T48 PO (12:45)
[2021-08-19] MEDS ORDERED: ATOR20TA66 PO (12:45)
[2021-08-19] MEDS ORDERED: NITR50CA PO (12:45)
[2021-08-19] MEDS ORDERED: CITA10TA14 PO (12:45)
[2021-08-19] MEDS ORDERED: mag hydrox/Alum hydrox/simeth 30ml oral suspension PO PRN (12:55)
[2021-08-19] MEDS ORDERED: HYDROcodone/acetaminophen 5mg/325mg tablet PO PRN (12:55)
[2021-08-19] MEDS ORDERED: ondansetron/PF 4mg/2ml inj IV PRN (12:55)
[2021-08-19] MEDS ORDERED: acetaminophen 325mg tablet PO PRN (12:55)
[2021-08-19] MEDS ORDERED: magnesium hydroxide 30ml (MOM) UD suspension PO PRN (12:55)
[2021-08-19 13:06] LABS: C-REACTIVE PROTEIN 0.32 MG/DL (0.0-0.5)
--- NOTE | 2021-08-19 15:37 | NUR ---
Patient's right lower leg is red and warm to the touch, new in last hour; Dr. Molina paged and messaged.
[2021-08-19] MEDS: ceFAZolin/D5W- 1GM premix 50 ML IV SCH ×2 (17:19→23:54)
[2021-08-19] MEDS: normal saline 1000ml 1,000 ML IV SCH (17:19)
[2021-08-19] MEDS: morphine 2 MG/ML inj. syringe IV PRN (17:40)
[2021-08-19 18:30] VITALS: BP 152/85
--- NOTE | 2021-08-19 18:42 | NUR ---
Report called to SIMEON Driscoll at [place] [id number]
[2021-08-19 20:00] VITALS: BP 152/85
[2021-08-19] MEDS: docusate sod 100mg capsule PO SCH (20:00)
[2021-08-19] MEDS: enoxaparin 60mg/0.6ml syringe SUBCUT SCH (20:49)
[2021-08-19] MEDS: enoxaparin 30mg/0.3ml syringe SUBCUT SCH (20:49)
[2021-08-19] MEDS: nitrofurantoin macrocrystal 50mg capsule PO SCH (20:53)
[2021-08-19] MEDS ORDERED: ENOX40SY7 SUBCUT (21:33)
[2021-08-20] VITALS (10 sets, daily range): BP systolic 93–151; BP diastolic 41–90
[2021-08-20] MEDS: HYDROcodone/acetaminophen 10/325mg tab PO PRN ×3 (00:02→19:32)
[2021-08-20 05:59] LABS: BASOPHILS % (AUTO) 0.7 % (0-1); EOSINOPHILS # (AUTO) 0.1 X10'3 (0-0.9); EOSINOPHILS % (AUTO) 1.7 % (0-6); HEMATOCRIT 31.4 % (35.0-45.0); HEMOGLOBIN 10.5 g/dl (12.0-16.0); LYMPHOCYTES # (AUTO) 1.2 X10'3 (1.1-4.8); LYMPHOCYTES % (AUTO) 26.9 % (21-51); MEAN CORPUSCULAR HGB CONC 33.3 g/dL (33.0-36.5); MEAN CORPUSCULAR VOLUME 89.9 FL (78-98); MONOCYTES # (AUTO) 0.5 X10'3 (0-0.9); MONOCYTES % (AUTO) 11.5 % (2-12); NEUTROPHILS # (AUTO) 2.7 X10'3 (1.8-7.7); NEUTROPHILS % (AUTO) 59.2 % (42-75); PLATELET COUNT 169 X10'3 (140-440); RED BLOOD COUNT 3.49 X10'6 (4.20-5.60); RED CELL DISTRIBUTION WIDTH 16.1 % (11.5-14.5); WHITE BLOOD COUNT 4.6 X10'3 (4.5-11.0)
[2021-08-20 06:11] LABS: ALBUMIN 3.3 G/DL (3.4-5.0); ANION GAP 8 (8-16); BLOOD UREA NITROGEN 10 MG/DL (7-18); BUN/CREATININE RATIO 11.6 (6.6-38.0); CALCIUM 8.8 MG/DL (8.5-10.1); CHLORIDE 104 MMOL/L (99-107); CREATININE 0.86 MG/DL (0.40-0.90); GLUCOSE 86 MG/DL (70-104); POTASSIUM 3.8 MMOL/L (3.5-5.1); SODIUM 141 MMOL/L (135-145); TOTAL CARBON DIOXIDE 29.5 MMOL/L (24-32); eGFR 62 ML/MIN
--- NOTE | 2021-08-20 06:30 | NUR ---
Patient in room DELROY 345. I have received report from SIMEON Driscoll and had the opportunity to ask questions and assume patient care.
--- NOTE | 2021-08-20 06:42 | NUR ---
Problems reprioritized. Patient report given, questions answered & plan of care reviewed with FREDY. Addendum: 08/20/21 at 0643 by Russell Lazo RN Amended: Links added.
[2021-08-20 07:09] LABS: APPEARANCE,SYNOVIAL FLUID BLOODY; COLOR,SYNOVIAL FLUID RED
[2021-08-20] MEDS: enoxaparin 60mg/0.6ml syringe SUBCUT SCH ×2 (08:00→20:00)
[2021-08-20] MEDS: enoxaparin 30mg/0.3ml syringe SUBCUT SCH ×2 (08:00→20:00)
[2021-08-20] MEDS: ceFAZolin/D5W- 1GM premix 50 ML IV SCH ×2 (08:02→19:20)
[2021-08-20] MEDS: atorvastatin 20mg tablet PO SCH (08:04)
[2021-08-20] MEDS: CITALOpram 10mg tablet PO SCH (08:04)
[2021-08-20] MEDS: amiodarone 100mg tablet PO SCH (08:04)
[2021-08-20] MEDS: docusate sod 100mg capsule PO SCH ×2 (08:04→22:19)
--- NOTE | 2021-08-20 11:13 | NUR ---
Notifed Brenda in the labels molder that patients was here admitted. Patient stated she has an appt with Dr Winkler at 1500 for an Angiogram. Brenda stated she will notify Oralia with Dr Winkler office. Brenda is aware of patients INR and she is not getting Coumadin and that patients Lovenox was held this am.
--- NOTE | 2021-08-20 15:26 | NUR ---
Per request by Queta HENDRIX in Angio, PIV was placed to the R FA 20g. Attempted 18 but viens are too frail. Stoney groins and Right wrist shaved in prep for Angio.
[2021-08-20] MEDS ORDERED: ondansetron 4mg rapidly disintigrating tab PO PRN (15:50)
--- NOTE | 2021-08-20 16:11 | NUR ---
to Breastfeeding Educator via Rani
[2021-08-20] MEDS ORDERED: ondansetron/PF 4mg/2ml inj IV PRN (18:45)
[2021-08-20] MEDS ORDERED: OXAZEpam 15mg capsule PO PRN (18:45)
[2021-08-20] MEDS ORDERED: proCHLORperazine 10 MG/2 ml inj IV PRN (18:45)
[2021-08-20] MEDS ORDERED: HYDROcodone/acetaminophen 5mg/325mg tablet PO PRN (18:45)
--- NOTE | 2021-08-20 18:52 | NUR ---
Problems reprioritized. Patient report given, questions answered & plan of care reviewed with SIMEON An.
--- NOTE | 2021-08-20 18:55 | NUR ---
Patient in room DELROY 345. I have received report from FREDY HENDRIX and had the opportunity to ask questions and assume patient care.
[2021-08-20] MEDS: nitrofurantoin macrocrystal 50mg capsule PO SCH (22:20)
[2021-08-21] MEDS: normal saline 1000ml 1,000 ML IV SCH (00:12)
[2021-08-21] MEDS: HYDROcodone/acetaminophen 10/325mg tab PO PRN ×3 (00:35→19:58)
[2021-08-21] MEDS: ceFAZolin/D5W- 1GM premix 50 ML IV SCH ×4 (00:36→23:50)
--- NOTE | 2021-08-21 06:30 | NUR ---
Problems reprioritized. Patient report given, questions answered & plan of care reviewed with ERIC RN.
--- NOTE | 2021-08-21 06:41 | NUR ---
Patient in room DELROY 345. I have received report from YASMIN HENDRIX and had the opportunity to ask questions and assume patient care.
[2021-08-21 07:01] LABS: BASOPHILS % (AUTO) 0.5 % (0-1); EOSINOPHILS # (AUTO) 0.1 X10'3 (0-0.9); EOSINOPHILS % (AUTO) 1.7 % (0-6); HEMATOCRIT 30.4 % (35.0-45.0); HEMOGLOBIN 9.9 g/dl (12.0-16.0); LYMPHOCYTES # (AUTO) 0.8 X10'3 (1.1-4.8); MEAN CORPUSCULAR HEMOGLOBIN 29.5 PG (27.0-31.0); MEAN CORPUSCULAR HGB CONC 32.7 g/dL (33.0-36.5); MEAN CORPUSCULAR VOLUME 90.1 FL (78-98); MEAN PLATELET VOLUME 9.2 FL (7.4-10.4); MONOCYTES # (AUTO) 0.5 X10'3 (0-0.9); NEUTROPHILS # (AUTO) 3.5 X10'3 (1.8-7.7); NEUTROPHILS % (AUTO) 70.8 % (42-75); PLATELET COUNT 163 X10'3 (140-440); RED BLOOD COUNT 3.37 X10'6 (4.20-5.60); RED CELL DISTRIBUTION WIDTH 16.3 % (11.5-14.5); WHITE BLOOD COUNT 4.9 X10'3 (4.5-11.0)
[2021-08-21 07:34] LABS: ALBUMIN 2.8 G/DL (3.4-5.0); ANION GAP 9 (8-16); BLOOD UREA NITROGEN 13 MG/DL (7-18); BUN/CREATININE RATIO 17.6 (6.6-38.0); CALCIUM 8.5 MG/DL (8.5-10.1); CHLORIDE 105 MMOL/L (99-107); CREATININE 0.74 MG/DL (0.40-0.90); GLUCOSE 87 MG/DL (70-104); POTASSIUM 3.7 MMOL/L (3.5-5.1); SODIUM 140 MMOL/L (135-145); TOTAL CARBON DIOXIDE 25.9 MMOL/L (24-32); eGFR 74 ML/MIN
[2021-08-21 08:11] VITALS: BP 118/65
[2021-08-21] MEDS: CITALOpram 10mg tablet PO SCH (08:21)
[2021-08-21] MEDS: docusate sod 100mg capsule PO SCH ×2 (08:21→19:58)
[2021-08-21] MEDS: amiodarone 100mg tablet PO SCH (08:22)
[2021-08-21] MEDS: atorvastatin 20mg tablet PO SCH (08:22)
[2021-08-21 12:38] VITALS: BP 95/49
[2021-08-21] MEDS: morphine 2 MG/ML inj. syringe IV PRN (14:14)
--- NOTE | 2021-08-21 18:43 | NUR ---
Problems reprioritized. Patient report given, questions answered & plan of care reviewed with Sheba HENDRIX.
[2021-08-21 20:00] VITALS: BP 122/66
[2021-08-21] MEDS: nitrofurantoin macrocrystal 50mg capsule PO SCH (20:00)
[2021-08-21] MEDS ORDERED: warfarin 7.5mg tablet PO SCH (21:00)
[2021-08-22] VITALS: BP 133/56
[2021-08-22] MEDS: HYDROcodone/acetaminophen 10/325mg tab PO PRN ×3 (00:03→23:23)
[2021-08-22 06:13] LABS: BASOPHILS % (AUTO) 0.5 % (0-1); EOSINOPHILS # (AUTO) 0.1 X10'3 (0-0.9); EOSINOPHILS % (AUTO) 2.4 % (0-6); HEMATOCRIT 28.2 % (35.0-45.0); HEMOGLOBIN 9.5 g/dl (12.0-16.0); LYMPHOCYTES # (AUTO) 1.3 X10'3 (1.1-4.8); LYMPHOCYTES % (AUTO) 29.7 % (21-51); MEAN CORPUSCULAR HGB CONC 33.7 g/dL (33.0-36.5); MEAN CORPUSCULAR VOLUME 89.2 FL (78-98); MEAN PLATELET VOLUME 9.4 FL (7.4-10.4); MONOCYTES # (AUTO) 0.5 X10'3 (0-0.9); MONOCYTES % (AUTO) 10.7 % (2-12); NEUTROPHILS # (AUTO) 2.5 X10'3 (1.8-7.7); NEUTROPHILS % (AUTO) 56.7 % (42-75); PLATELET COUNT 150 X10'3 (140-440); RED BLOOD COUNT 3.16 X10'6 (4.20-5.60); RED CELL DISTRIBUTION WIDTH 16.1 % (11.5-14.5); WHITE BLOOD COUNT 4.3 X10'3 (4.5-11.0)
[2021-08-22 06:18] LABS: ALBUMIN 2.8 G/DL (3.4-5.0); ANION GAP 8 (8-16); BLOOD UREA NITROGEN 16 MG/DL (7-18); BUN/CREATININE RATIO 20.5 (6.6-38.0); CALCIUM 8.3 MG/DL (8.5-10.1); CHLORIDE 105 MMOL/L (99-107); CREATININE 0.78 MG/DL (0.40-0.90); GLUCOSE 87 MG/DL (70-104); POTASSIUM 3.8 MMOL/L (3.5-5.1); SODIUM 140 MMOL/L (135-145); TOTAL CARBON DIOXIDE 26.9 MMOL/L (24-32); eGFR 70 ML/MIN
[2021-08-22 07:10] VITALS: BP 135/59
[2021-08-22] MEDS: CITALOpram 10mg tablet PO SCH (08:12)
[2021-08-22] MEDS: amiodarone 100mg tablet PO SCH (08:13)
[2021-08-22] MEDS: docusate sod 100mg capsule PO SCH ×2 (08:13→21:09)
[2021-08-22] MEDS: atorvastatin 20mg tablet PO SCH (08:13)
[2021-08-22] MEDS: ceFAZolin/D5W- 1GM premix 50 ML IV SCH ×3 (10:18→23:30)
[2021-08-22 12:00] VITALS: BP 122/73
[2021-08-22] MEDS ORDERED: WARF7.5T48 PO (16:09)
--- NOTE | 2021-08-22 17:22 | NUR ---
Message: 345B: Jazmine SALGUERO: patients daughter is at the bedside demanding she speak with a doctor. she has called admin already. devan. thank you, [phone] Transaction number: [id number]
[2021-08-22] MEDS ORDERED: traMADol 50MG tablet PO PRN (18:10)
--- NOTE | 2021-08-22 18:13 | NUR ---
page sent to PT ....[address] is requesting this pt being worked with first thing in AM, pending DC on ambulation
--- NOTE | 2021-08-22 18:36 | NUR ---
Problems reprioritized. Patient report given, questions answered & plan of care reviewed with SIMEON Scruggs.
[2021-08-22 20:00] VITALS: BP 155/74
[2021-08-22] MEDS ORDERED: warfarin 7.5mg tablet PO ONE ×2 (21:00)
[2021-08-22] MEDS: nitrofurantoin macrocrystal 50mg capsule PO SCH (21:09)
[2021-08-23] VITALS: BP 121/50
[2021-08-23] MEDS: normal saline 1000ml 1,000 ML IV SCH (06:33)
[2021-08-23 06:41] LABS: BASOPHILS % (AUTO) 0.8 % (0-1); EOSINOPHILS # (AUTO) 0.1 X10'3 (0-0.9); EOSINOPHILS % (AUTO) 2.8 % (0-6); HEMATOCRIT 29.9 % (35.0-45.0); HEMOGLOBIN 9.8 g/dl (12.0-16.0); LYMPHOCYTES # (AUTO) 1.2 X10'3 (1.1-4.8); MEAN CORPUSCULAR HEMOGLOBIN 29.9 PG (27.0-31.0); MEAN CORPUSCULAR HGB CONC 32.9 g/dL (33.0-36.5); MEAN CORPUSCULAR VOLUME 90.9 FL (78-98); MEAN PLATELET VOLUME 9.6 FL (7.4-10.4); MONOCYTES # (AUTO) 0.5 X10'3 (0-0.9); MONOCYTES % (AUTO) 11.7 % (2-12); NEUTROPHILS # (AUTO) 2.7 X10'3 (1.8-7.7); NEUTROPHILS % (AUTO) 59.7 % (42-75); PLATELET COUNT 158 X10'3 (140-440); RED BLOOD COUNT 3.29 X10'6 (4.20-5.60); RED CELL DISTRIBUTION WIDTH 16.3 % (11.5-14.5); WHITE BLOOD COUNT 4.6 X10'3 (4.5-11.0)
[2021-08-23 06:46] LABS: ALBUMIN 2.8 G/DL (3.4-5.0); ANION GAP 7 (8-16); BLOOD UREA NITROGEN 17 MG/DL (7-18); BUN/CREATININE RATIO 22.7 (6.6-38.0); CALCIUM 8.4 MG/DL (8.5-10.1); CHLORIDE 103 MMOL/L (99-107); CREATININE 0.75 MG/DL (0.40-0.90); GLUCOSE 92 MG/DL (70-104); POTASSIUM 4.1 MMOL/L (3.5-5.1); SODIUM 137 MMOL/L (135-145); TOTAL CARBON DIOXIDE 27.3 MMOL/L (24-32); eGFR 73 ML/MIN
[2021-08-23 07:00] VITALS: BP 121/52
--- NOTE | 2021-08-23 07:01 | NUR ---
Patient in room DELROY 345. I have received report from Sheba HENDRIX and had the opportunity to ask questions and assume patient care.
[2021-08-23] MEDS: HYDROcodone/acetaminophen 10/325mg tab PO PRN ×2 (07:05→13:26)
[2021-08-23] MEDS: atorvastatin 20mg tablet PO SCH (08:32)
[2021-08-23] MEDS: ceFAZolin/D5W- 1GM premix 50 ML IV SCH (08:32)
[2021-08-23] MEDS: CITALOpram 10mg tablet PO SCH (08:32)
[2021-08-23] MEDS: docusate sod 100mg capsule PO SCH (08:32)
[2021-08-23] MEDS: amiodarone 100mg tablet PO SCH (08:32)
[2021-08-23] MEDS ORDERED: TRAM50TA2 PO ×2 (09:46)
--- NOTE | 2021-08-23 10:30 | NUR ---
Message: Loli-Surg [phone] Re: 345B Cliff patient did not like Tramadol last night said it did not help pain. Can she have [place] for pain on discharge instead of Tramadol? Custom Responses: promotional table spacer Transaction number: [id number]
--- NOTE | 2021-08-23 11:58 | NUR ---
Message: Loli-Surg 3843 Re: Cliff SalinasB please call re: discharge pain medications Custom Responses: promotional table spacer Transaction number: [id number]
[2021-08-23 12:00] VITALS: BP 124/55
--- NOTE | 2021-08-23 12:10 | NUR ---
Patients daughter Trang is ok with patient being discharged with norco instead of Tramadol. Paged Dr Marie to advise. Called [facility] and canceled RX for Tramadol.
--- NOTE | 2021-08-23 12:10 | NUR ---
Spoke with patients martínez Costello regarding patients discharge. Per Daughter mother will be staying with her throughout the weekend. Martínez Costello's phone number is [phone] and her address is [address] [place] [address]
--- NOTE | 2021-08-23 13:41 | NUR ---
Message: Loli Surg [phone] Re: Cliff 345B I have called and canceled Tramadol from patients discharge daughter is ok for [place] Thank you Custom Responses: promotional table spacer Transaction number: [id number]
--- NOTE | 2021-08-23 14:05 | NUR ---
Patients discharge instructions reviewed with patient and patients daughter Trang at bedside. Patient and daughter verbalized understanding. Patients IV dc'd cannula intact. Patients daughter has all patients belongings and patient assisted to wheelchair and taken to daughters vehicle by YOUSIF Weeks.
[2021-08-23] MEDS ORDERED: HYDR-3965 PO (15:36)
--- NOTE | 2021-08-23 15:44 | NUR ---
Called and notified daughter Trang that Dr Marie transmitted the [place] script for patient and her pharmacy should notify her when ready.
[2021-08-23] MEDS ORDERED: warfarin 10mg tablet PO SCH (21:00)
== END 2021-08-23 14:14 | disposition home health service (06) | DRG 565 ==
LOC: ER 08:00 → ED HOLD 12:55 → SUR 3N 18:50
PROVIDERS: ADMIT Family Medicine; ATTEND Family Medicine
PROC: 0S9C3ZZ Drainage of Right Knee Joint, Percutaneous Approach (ICD-10-PCS; principal; 2021-08-20)
DX: M25.461 Effusion, right knee (principal); M25.061 Hemarthrosis, right knee; L03.115 Cellulitis of right lower limb; M17.11 Unilateral primary osteoarthritis, right knee; Z96.653 Presence of artificial knee joint, bilateral; I48.0 Paroxysmal atrial fibrillation; Z20.822 Contact with and (suspected) exposure to COVID-19; F32.A Depression, unspecified; F41.9 Anxiety disorder, unspecified; M19.90 Unspecified osteoarthritis, unspecified site; I35.0 Nonrheumatic aortic (valve) stenosis; I10 Essential (primary) hypertension; Y92.89 Other specified places as the place of occurrence of the external cause; Z79.899 Other long term (current) drug therapy
CPT/HCPCS: 36415; 73560; 73564; 80048; 80053; 83735; 83880; 84145; 85025; 85610; 85651; 85730; 86140; 87070; 87081; 87635; 89051; 93005; 93454; 93971; 97110; 97116; 97161; 97530; 99152; 99153; 99285; A4620; C1760; C1769; C1894; C9803; G0378; J0690; J1650; J2270; J2405; J7030

== ENCOUNTER 2021-10-04 13:03 | Outpatient (CLI) | payer MEDICARE, MEDICAID ==
[~2021-10-04 13:03] MED LIST changes: -ATOR10TA87 PO; +ATOR20TA66 PO; -CELE-193 PO; -CITA-311 PO; +CITA10TA14 PO; -ENOX80DI8 SQ; -FURO80TA87 PO; -GABA-532 PO; -HYDR-4353 PO; +IODIXANOL 320 MG/ML INFUS..BTL 100ML IV ONE; +IODIXANOL 320 MG/ML INFUS..BTL 50ML IV ONE; -LIDO700A47 TOP; +NITR50CA PO; -NITR50CA4 PO; -POTA-188 PO; -WARF-113 PO; +WARF7.5T48 PO
[2021-10-04 13:44] LABS: BASOPHILS % (AUTO) 0.9 % (0-1); EOSINOPHILS # (AUTO) 0.1 X10'3 (0-0.9); EOSINOPHILS % (AUTO) 2.2 % (0-6); HEMATOCRIT 31.9 % (35.0-45.0); HEMOGLOBIN 10.6 g/dl (12.0-16.0); LYMPHOCYTES # (AUTO) 0.9 X10'3 (1.1-4.8); LYMPHOCYTES % (AUTO) 20.9 % (21-51); MEAN CORPUSCULAR HEMOGLOBIN 29.8 PG (27.0-31.0); MEAN CORPUSCULAR HGB CONC 33.2 g/dL (33.0-36.5); MEAN CORPUSCULAR VOLUME 89.8 FL (78-98); MONOCYTES # (AUTO) 0.4 X10'3 (0-0.9); MONOCYTES % (AUTO) 9.5 % (2-12); NEUTROPHILS # (AUTO) 2.8 X10'3 (1.8-7.7); NEUTROPHILS % (AUTO) 66.5 % (42-75); PLATELET COUNT 175 X10'3 (140-440); RED BLOOD COUNT 3.55 X10'6 (4.20-5.60); RED CELL DISTRIBUTION WIDTH 15.9 % (11.5-14.5); WHITE BLOOD COUNT 4.2 X10'3 (4.5-11.0)
[2021-10-04 13:52] LABS: CHLORIDE 106 MMOL/L (99-107); POTASSIUM 4.4 MMOL/L (3.5-5.1); SODIUM 143 MMOL/L (135-145)
[2021-10-04 13:56] LABS: APTT 38 SECONDS (22-32)
[2021-10-04 14:06] LABS: ALANINE AMINOTRANSFERASE 23 U/L (12-78); ALBUMIN 3.8 G/DL (3.4-5.0); ALBUMIN/GLOBULIN RATIO 1.4 (1.1-1.5); ALKALINE PHOSPHATASE 93 IU/L (46-116); ANION GAP 10 (8-16); ASPARTATE AMINO TRANSFERASE 19 U/L (10-37); BILIRUBIN,TOTAL 0.6 MG/DL (0.1-1.0); BLOOD UREA NITROGEN 13 MG/DL (7-18); BUN/CREATININE RATIO 15.9 (6.6-38.0); CALCIUM 8.4 MG/DL (8.5-10.1); CREATININE 0.82 MG/DL (0.40-0.90); GLUCOSE 95 MG/DL (70-104); TOTAL CARBON DIOXIDE 27.5 MMOL/L (24-32); TOTAL PROTEIN 6.6 G/DL (6.4-8.2); eGFR 66 ML/MIN
== END 2021-10-04 23:59 | disposition home or self-care (01) ==
LOC: 64 CT 13:03
PROVIDERS: ATTEND Internal Medicine Cardiovascular Disease
DX: K40.90 Unilateral inguinal hernia, without obstruction or gangrene, not specified as recurrent (principal); K57.30 Diverticulosis of large intestine without perforation or abscess without bleeding; K80.20 Calculus of gallbladder without cholecystitis without obstruction; I35.0 Nonrheumatic aortic (valve) stenosis; R06.02 Shortness of breath; I65.29 Occlusion and stenosis of unspecified carotid artery
CPT/HCPCS: 36415; 71046; 71275; 74174; 80053; 85025; 85610; 85730; 94010; 94727; 94729; Q9967; U0003

== ENCOUNTER 2021-11-11 09:41 | Inpatient (IN) | payer MEDICARE, MEDICAID ==
[2021-11-06 15:12] LABS: CLARITY,URINE CLEAR (Clear); COLOR,URINE YELLOW (Yellow); GLUCOSE, URINE NEGATIVE (Neg); KETONES,URINE NEGATIVE (Neg); LEUKOCYTE ESTERASE ,URINE NEGATIVE (Neg); NITRITES, URINE NEGATIVE (Neg); OCCULT BLOOD,URINE MODERATE (Neg); PROTEIN,URINE NEGATIVE (Neg); UROBILINOGEN,URINE 0.2 E.U/dL (0.2-1.0)
[2021-11-06 15:16] LABS: UA COLLECTION TYPE CLN CATCH MIDSTREAM
[2021-11-06 15:26] LABS: SQUAMOUS EPITHELIAL CELL,UR FEW /LPF (FEW)
[2021-11-06 15:27] LABS: BACTERIA,URINE FEW /HPF (Neg); WBC,URINE 0-4 /HPF (0-4)
[~2021-11-11] VITALS: Ht 160 cm; Wt 90.2 kg
[~2021-11-11 09:41] MED LIST changes: -IODIXANOL 320 MG/ML INFUS..BTL 100ML IV ONE; -IODIXANOL 320 MG/ML INFUS..BTL 50ML IV ONE
[2021-11-11] MEDS ORDERED: CHOL20002 PO (10:39)
[2021-11-11] MEDS ORDERED: [UNRECOGNIZED DRUG - OTHER] (10:39)
[2021-11-11 11:08] LABS: BASOPHILS % (AUTO) 0.6 % (0-1); EOSINOPHILS # (AUTO) 0.1 X10'3 (0-0.9); EOSINOPHILS % (AUTO) 2.1 % (0-6); LYMPHOCYTES # (AUTO) 0.8 X10'3 (1.1-4.8); LYMPHOCYTES % (AUTO) 18.1 % (21-51); MEAN CORPUSCULAR HEMOGLOBIN 28.5 PG (27.0-31.0); MEAN CORPUSCULAR HGB CONC 32.4 g/dL (33.0-36.5); MEAN CORPUSCULAR VOLUME 87.9 FL (78-98); MEAN PLATELET VOLUME 9.3 FL (7.4-10.4); MONOCYTES # (AUTO) 0.3 X10'3 (0-0.9); MONOCYTES % (AUTO) 7.6 % (2-12); NEUTROPHILS % (AUTO) 71.6 % (42-75); PRE OP HEMATOCRIT 33.3 % (35.0-45.0); PRE OP PLATELET COUNT 159 X10'3 (140-440); RED BLOOD COUNT 3.79 X10'6 (4.20-5.60); RED CELL DISTRIBUTION WIDTH 15.4 % (11.5-14.5)
[2021-11-11 11:10] LABS: PRE OP HEMOGLOBIN 10.8 g/dL (12.0-16.0)
[2021-11-11 11:21] LABS: PRE OP INR 2.6 INR
[2021-11-11 11:28] LABS: ALBUMIN 3.8 G/DL (3.4-5.0); ALBUMIN/GLOBULIN RATIO 1.3 (1.1-1.5); ALKALINE PHOSPHATASE 81 IU/L (46-116); BLOOD UREA NITROGEN 10 MG/DL (7-18); CALCIUM 9.2 MG/DL (8.5-10.1); CHLORIDE 104 MMOL/L (99-107); CREATININE 0.77 MG/DL (0.40-0.90); PRE OP ALT 17 U/L (30-65); PRE OP ANION GAP 8 (8-16); PRE OP AST 17 U/L (10-37); PRE OP BILIRUB, TOTAL 0.6 MG/DL (0.0-1.0); PRE OP GLUCOSE 87 MG/DL (70-104); PRE OP POTASSIUM 3.8 MMOL/L (3.4-5.1); PRE OP SODIUM 139 MMOL/L (135-145); TOTAL CARBON DIOXIDE 27.1 MMOL/L (24-32); TOTAL PROTEIN 6.8 G/DL (6.4-8.2); eGFR 71 ML/MIN
[2021-11-14] VITALS (24 sets, daily range): BP systolic 109–174; BP diastolic 47–91
[2021-11-14] MEDS ORDERED: ringers solution, lacted 1,000 ML IV SCH (05:00)
[2021-11-14] MEDS ORDERED: ondansetron/PF 4mg/2ml inj IV PRN ×2 (05:30→11:40)
[2021-11-14] MEDS ORDERED: phenylephrine 50 MG in NS 250ml IVPB IV SCH (05:30)
[2021-11-14] MEDS ORDERED: nitroPRUSSIDE (NIPRIDE) (200MCG/ML) 100ML Drip IV SCH (05:30)
[2021-11-14] MEDS ORDERED: cefazolin/dext.iso 2gm/50ml IV ONE (05:30)
[2021-11-14] MEDS ORDERED: famotidine 20mg tablet PO ONE (05:30)
[2021-11-14] MEDS ORDERED: aspirin 325mg tablet PO ONE (05:30)
[2021-11-14] MEDS ORDERED: vancomycin 1,500 MG in NS 300ml IV soln IV ONE (05:30)
[2021-11-14 09:56] LABS: HEMATOCRIT 29.8 % (35.0-45.0); HEMOGLOBIN 9.7 g/dl (12.0-16.0); MEAN CORPUSCULAR HEMOGLOBIN 28.4 PG (27.0-31.0); MEAN CORPUSCULAR HGB CONC 32.4 g/dL (33.0-36.5); MEAN CORPUSCULAR VOLUME 87.8 FL (78-98); MEAN PLATELET VOLUME 9.4 FL (7.4-10.4); PLATELET COUNT 143 X10'3 (140-440); WHITE BLOOD COUNT 3.3 X10'3 (4.5-11.0)
[2021-11-14] MEDS ORDERED: LIDOcaine 1% (10mg/ml)w/preservative inj. 20ml MDV ONE (10:10)
[2021-11-14] MEDS ORDERED: heparin 1,000 UNITS/NS 500ml 1,500 ML ONE (10:10)
[2021-11-14] MEDS ORDERED: iohexol 350MG/ML 100ml bottle IV ONE (10:10)
[2021-11-14] MEDS ORDERED: iohexol 350 MG/ML 50ML vial IV ONE (10:10)
[2021-11-14] MEDS ORDERED: protamine sulfate 10mg/ml inj. ONE (10:12)
[2021-11-14] MEDS ORDERED: FENTANYL CITRATE/PF 50 MCG/1 ML VIAL ONE ×3 (10:15→10:49)
[2021-11-14] MEDS ORDERED: midazolam 1 mg/ML 2ml injection ONE (10:15)
[2021-11-14] MEDS ORDERED: propofol inj 20 ML IV ONE (11:30)
[2021-11-14] MEDS ORDERED: LIDOcaine 1%/PF 5ML 10 MG/ML VIAL ONE (11:30)
[2021-11-14] MEDS ORDERED: heparin 1,000unit/ml 10ml vial 10 ML ONE (11:30)
[2021-11-14] MEDS ORDERED: pantoprazole 40mg Tablet.DR PO PRN (11:40)
[2021-11-14] MEDS ORDERED: labetalol 20mg/4ml (5mg/ml) syringe IV PRN (11:40)
[2021-11-14] MEDS ORDERED: hydrALAZINE 20mg/ml inj. IV PRN (11:40)
[2021-11-14] MEDS ORDERED: proCHLORperazine 10 MG/2 ml inj IV PRN (11:40)
[2021-11-14] MEDS ORDERED: ALPRAZolam 0.25mg tablet PO PRN (11:40)
[2021-11-14] MEDS ORDERED: docusate sod 100mg capsule PO PRN (11:40)
[2021-11-14] MEDS ORDERED: diphenhydrAMINE 25mg capsule PO PRN (11:40)
--- NOTE | 2021-11-14 11:42 | NUR ---
Received from OR via HOSPITAL BED , accompanied by Anesthesiologist DR AGUIRRE and report given by Anesthesiolgist. PT PRSENTS WITH ART LINE LEFT WRIST, PIV 20G RIGHT HAND, SAURAV PARSON. Addendum: 11/14/21 at 1158 by Nikole Arizmendi RN, RN Amended: Links added.
--- NOTE | 2021-11-14 12:11 | NUR ---
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 Addendum: 11/14/21 at 1214 by Nikole Arizmendi RN, RN Amended: Links added.
--- NOTE | 2021-11-14 12:32 | NUR ---
PT LEFT GROIN DRESSING SATURATED, DR ENG CALLED. DR COLLIER AT BEDSIDE. NEW 4X4 PLACED ON LEFT GROIN WITH TEGADERM. NO SIGN OF EXUDATE NOTED AT THIS TIME. Addendum: 11/14/21 at 1234 by Nikole Arizmendi RN, RN Amended: Links added.
--- NOTE | 2021-11-14 12:37 | NUR ---
PT IS CURRENTLY A-FIB, HR 66. Addendum: 11/14/21 at 1237 by Nikole Arizmendi RN RN Amended: Links added.
--- NOTE | 2021-11-14 13:42 | NUR ---
Report called to receiving nurse FRANCE HENDRIX. Transferred via HOSPITAL BED TO ROOM 3023B. PT'S DAUGHTER HAS PT BELONGINGS. BED IN LOW LOCKED POSITION WITH CALL LIGHT IN REACH. PT HOOKED UP TO BEDSIDE TELE MONITOR. Special Issues communicated to receiving nurse. Addendum: 11/14/21 at 1355 by Nikole Arizmendi RN RN Amended: Links added.
[2021-11-14] MEDS: acetaminophen 325mg tablet PO PRN (15:03)
[2021-11-14] MEDS: ceFAZolin 1GM/D5W- ADD-VANTAGE 50 ML IV SCH ×2 (15:32→23:15)
[2021-11-14] MEDS: sod chloride 0.9% 10ml flush syringe IV SCH (15:32)
[2021-11-14] MEDS: normal saline 1000ml 1,000 ML IV SCH ×2 (15:32→20:35)
--- NOTE | 2021-11-14 18:19 | NUR ---
[place] documentation: I have reviewed and agree with all interventions, assessments performed and documented by LIN Sherman.
--- NOTE | 2021-11-14 19:16 | NUR ---
Patient in room PCU 3023. I have received report from ALIS HENDRIX and had the opportunity to ask questions and assume patient care.
[2021-11-14] MEDS: vancomycin/NS 1 GM ADD-VANTAGE 250 ML IV SCH (20:30)
[2021-11-14] MEDS ORDERED: warfarin 7.5mg tablet PO SCH (21:00)
[2021-11-14] MEDS ORDERED: nitrofurantoin macrocrystal 50mg capsule PO SCH (21:00)
[2021-11-15 02:00] VITALS: BP 145/83
[2021-11-15 05:49] LABS: BASOPHILS % (AUTO) 0.8 % (0-1); EOSINOPHILS # (AUTO) 0.1 X10'3 (0-0.9); EOSINOPHILS % (AUTO) 1.7 % (0-6); HEMATOCRIT 29.2 % (35.0-45.0); HEMOGLOBIN 9.6 g/dl (12.0-16.0); LYMPHOCYTES # (AUTO) 0.5 X10'3 (1.1-4.8); LYMPHOCYTES % (AUTO) 13.7 % (21-51); MEAN PLATELET VOLUME 9.1 FL (7.4-10.4); MONOCYTES # (AUTO) 0.3 X10'3 (0-0.9); MONOCYTES % (AUTO) 8.8 % (2-12); PLATELET COUNT 116 X10'3 (140-440); RED BLOOD COUNT 3.32 X10'6 (4.20-5.60); RED CELL DISTRIBUTION WIDTH 15.8 % (11.5-14.5)
[2021-11-15 06:00] VITALS: BP 129/61
--- NOTE | 2021-11-15 06:06 | NUR ---
Problems reprioritized. Patient report given, questions answered & plan of care reviewed with ALIS HENDRIX.
[2021-11-15 06:15] LABS: ALANINE AMINOTRANSFERASE 15 U/L (12-78); ALBUMIN 3.2 G/DL (3.4-5.0); ALBUMIN/GLOBULIN RATIO 1.3 (1.1-1.5); ALKALINE PHOSPHATASE 74 IU/L (46-116); ANION GAP 6 (8-16); ASPARTATE AMINO TRANSFERASE 18 U/L (10-37); BILIRUBIN,TOTAL 0.8 MG/DL (0.1-1.0); BLOOD UREA NITROGEN 8 MG/DL (7-18); BUN/CREATININE RATIO 12.9 (6.6-38.0); CALCIUM 8.3 MG/DL (8.5-10.1); CHLORIDE 107 MMOL/L (99-107); CREATININE 0.62 MG/DL (0.40-0.90); GLUCOSE 87 MG/DL (70-104); MAGNESIUM 1.9 MG/DL (1.5-2.4); SODIUM 140 MMOL/L (135-145); TOTAL CARBON DIOXIDE 27.1 MMOL/L (24-32); TOTAL PROTEIN 5.6 G/DL (6.4-8.2); eGFR > 90 ML/MIN
[2021-11-15] MEDS: normal saline 1000ml 1,000 ML IV SCH (07:40)
[2021-11-15] MEDS ORDERED: atorvastatin 20mg tablet PO SCH (08:00)
[2021-11-15] MEDS: sod chloride 0.9% 10ml flush syringe IV SCH ×2 (08:00)
[2021-11-15] MEDS ORDERED: CITALOpram 10mg tablet PO SCH (08:00)
[2021-11-15] MEDS ORDERED: cholecalciferol (vitamin D3) 1,000 unit (25mcg) tablet PO SCH (08:00)
[2021-11-15] MEDS ORDERED: amiodarone 100mg tablet PO SCH (08:00)
[2021-11-15] MEDS: acetaminophen 325mg tablet PO PRN (08:06)
[2021-11-15] MEDS: ceFAZolin 1GM/D5W- ADD-VANTAGE 50 ML IV SCH (08:23)
[2021-11-15] MEDS ORDERED: aspirin 81mg tab.chew PO SCH (08:30)
[2021-11-15] MEDS ORDERED: ENOX40SY7 SQ (09:03)
[2021-11-15] MEDS ORDERED: ASPI81TA53 PO (09:04)
[2021-11-15] MEDS: vancomycin/NS 1 GM ADD-VANTAGE 250 ML IV SCH (09:26)
[2021-11-15 11:00] VITALS: BP 111/48
--- NOTE | 2021-11-15 13:32 | NUR ---
Pt stable for d/c Per MD orders. All d/c ppwk was reviewed with patient and patient daughter. All questions, comments, and concerns were answered at this time. PIV was removed - pt tolerated well. Tele was removed from patient and left in room after d/c. New RX was sent electronically to [facility]. Education provided - pt and daughter verbalized understanding. All personal belongings were sent with patient. Patient was wheeled out in W/C by nursing staff to private vehicle where daughter was waiting. D/C was delayed d/t pending Dr Morris review of ECHO, EKG, and CXR.
--- NOTE | 2021-11-15 13:52 | NUR ---
[place] documentation: I have reviewed and agree with all interventions, assessments performed and documented by LIN Sherman.
[2021-11-15] MEDS ORDERED: warfarin 7.5mg tablet PO SCH (21:00)
[2021-11-16] MEDS ORDERED: warfarin 7.5mg tablet PO SCH (21:00)
== END 2021-11-15 13:31 | disposition home or self-care (01) | DRG 267 ==
LOC: PAS IN 09:41 → UNDOADMIN 09:41 → PAS IN 11-14 07:35 → PCU 3S 11-14 13:45
PROVIDERS: ADMIT Internal Medicine Cardiovascular Disease; ATTEND Internal Medicine Cardiovascular Disease
PROC: B41D1ZZ Fluoroscopy of Aorta and Bilateral Lower Extremity Arteries using Low Osmolar Contrast (ICD-10-PCS; 2021-11-14)
PROC: X2RF332 Replacement of Aortic Valve using Zooplastic Tissue, Rapid Deployment Technique, Percutaneous Approach, New Technology Group 2 (ICD-10-PCS; principal; 2021-11-14 10:32)
DX: I35.0 Nonrheumatic aortic (valve) stenosis (principal); Z00.6 Encounter for examination for normal comparison and control in clinical research program; I48.20 Chronic atrial fibrillation, unspecified; M17.0 Bilateral primary osteoarthritis of knee; R26.2 Difficulty in walking, not elsewhere classified; D64.9 Anemia, unspecified; I10 Essential (primary) hypertension; I25.10 Atherosclerotic heart disease of native coronary artery without angina pectoris; Z79.01 Long term (current) use of anticoagulants; Z86.73 Personal history of transient ischemic attack (TIA), and cerebral infarction without residual deficits
CPT/HCPCS: 33361; 36415; 71045; 71046; 80053; 81001; 82948; 83735; 83880; 85025; 85027; 85347; 85610; 85730; 86885; 86900; 86901; 86920; 87081; 87635; 93005; 93308; A4618; A6258; A6449; C1760; C1769; C1894; G0378; J0690; J1644; J2250; J2370; J2704; J2720; J3010; J3370; J3490; J7030; J7040; J7050; J7120; Q9967

== ENCOUNTER 2024-01-03 15:57 | Inpatient (IN) | payer MEDICARE, MEDICAID ==
[~2024-01-03] VITALS: Ht 160 cm; Wt 95.0 kg
[~2024-01-03 15:57] MED LIST changes: +ASPI81TA53 PO; +CHOL20002 PO; +ENOX40SY7 SQ; +[UNRECOGNIZED DRUG - OTHER]
[2024-01-03 16:46] LABS: BASOPHILS % (AUTO) 0.2 % (0-1); EOSINOPHILS % (AUTO) 0.2 % (0-6); HEMATOCRIT 33.1 % (35.0-45.0); HEMOGLOBIN 10.8 g/dl (12.0-16.0); LYMPHOCYTES # (AUTO) 0.5 X10'3 (1.1-4.8); LYMPHOCYTES % (AUTO) 4.3 % (21-51); MEAN CORPUSCULAR HEMOGLOBIN 28.5 PG (27.0-31.0); MEAN CORPUSCULAR HGB CONC 32.6 g/dL (33.0-36.5); MEAN CORPUSCULAR VOLUME 87.3 FL (78-98); MEAN PLATELET VOLUME 9.1 FL (7.4-10.4); MONOCYTES # (AUTO) 0.5 X10'3 (0-0.9); MONOCYTES % (AUTO) 4.2 % (2-12); NEUTROPHILS # (AUTO) 9.7 X10'3 (1.8-7.7); NEUTROPHILS % (AUTO) 91.1 % (42-75); PLATELET COUNT 183 X10'3 (140-440); WHITE BLOOD COUNT 10.7 X10'3 (4.5-11.0)
[2024-01-03 16:50] LABS: APTT 29 SECONDS (22-32); INR 1.8 INR; PROTHROMBIN TIME 18.3 SECONDS (9.0-12.0)
[2024-01-03 16:55] LABS: ALBUMIN 3.4 G/DL (3.4-5.0); ANION GAP 5 (8-16); BLOOD UREA NITROGEN 18 MG/DL (7-18); CALCIUM 8.9 MG/DL (8.5-10.1); CHLORIDE 102 MMOL/L (99-107); GLUCOSE 124 MG/DL (70-104); POTASSIUM 3.9 MMOL/L (3.5-5.1); SODIUM 136 MMOL/L (135-145); TOTAL CARBON DIOXIDE 28.6 MMOL/L (24-32); eCRCL 35 ML/MIN; eGFR 59 ML/MIN
[2024-01-03] MEDS: morphine 2 MG/ML inj. syringe IV ONE (17:43)
[2024-01-03] MEDS ORDERED: iohexol 300mg/ml 100ml inj. ONE (18:12)
[2024-01-03] MEDS: fentaNYL/PF 50MCG/1 ML 2ML syringe IV ONE (18:48)
[2024-01-03] MEDS: ondansetron/PF 4mg/2ml inj IV ONE (19:23)
[2024-01-03] MEDS: HYDROmorphone inj. 0.5 MG/0.5 ML DISP.SYRIN IV ONE ×2 (21:39→23:42)
[2024-01-03] MEDS ORDERED: mag hydrox/Alum hydrox/simeth 30ml oral suspension PO PRN (22:35)
[2024-01-03] MEDS ORDERED: potassium Cl 40MEQ/1/2NS 520ml 520 ML IV PRN (22:35)
[2024-01-03] MEDS ORDERED: magnesium 2GM in 50ml NS 50 ML IV PRN (22:35)
[2024-01-03] MEDS ORDERED: magnesium Cl slow-release 64mg tablet PO PRN (22:35)
[2024-01-03] MEDS ORDERED: potassium Cl 20 mEq SR tablet PO PRN ×2 (22:35)
[2024-01-03] MEDS ORDERED: magnesium 4gm in 100ml NS 100 ML IV PRN (22:35)
[2024-01-03] MEDS ORDERED: ondansetron/PF 4mg/2ml inj IV PRN (22:35)
[2024-01-03] MEDS: CITALOpram 10mg tablet PO SCH (22:55)
[2024-01-03] MEDS: acetaminophen 1,000mg/100ml IV 100 ML IV ONE (23:41)
[2024-01-04] VITALS (7 sets, daily range): BP systolic 106–151; BP diastolic 48–78; PULSE 69–106; RESP 11–18; TEMP 97.1–98.6; O2SAT 96–99
[2024-01-04] MEDS: morphine 2 MG/ML inj. syringe IV PRN (00:20)
[2024-01-04 07:24] LABS: BASOPHILS % (AUTO) 0.3 % (0-1); EOSINOPHILS % (AUTO) 0.3 % (0-6); HEMATOCRIT 29.9 % (35.0-45.0); HEMOGLOBIN 9.8 g/dl (12.0-16.0); LYMPHOCYTES # (AUTO) 0.7 X10'3 (1.1-4.8); MEAN CORPUSCULAR HEMOGLOBIN 28.8 PG (27.0-31.0); MEAN CORPUSCULAR HGB CONC 32.9 g/dL (33.0-36.5); MEAN CORPUSCULAR VOLUME 87.6 FL (78-98); MEAN PLATELET VOLUME 8.9 FL (7.4-10.4); MONOCYTES # (AUTO) 0.6 X10'3 (0-0.9); MONOCYTES % (AUTO) 8.9 % (2-12); NEUTROPHILS # (AUTO) 5.6 X10'3 (1.8-7.7); NEUTROPHILS % (AUTO) 80.5 % (42-75); PLATELET COUNT 181 X10'3 (140-440); RED BLOOD COUNT 3.42 X10'6 (4.20-5.60); RED CELL DISTRIBUTION WIDTH 16.8 % (11.5-14.5); WHITE BLOOD COUNT 6.9 X10'3 (4.5-11.0)
[2024-01-04 07:30] LABS: APTT 32 SECONDS (22-32); INR 1.8 INR; MAGNESIUM 1.9 MG/DL (1.5-2.4); POTASSIUM 4.4 MMOL/L (3.5-5.1); PROTHROMBIN TIME 18.4 SECONDS (9.0-12.0)
[2024-01-04] MEDS: amiodarone 100mg tablet PO SCH (07:34)
[2024-01-04] MEDS: docusate sod 100mg capsule PO SCH (08:00)
[2024-01-04] MEDS: atorvastatin 20mg tablet PO SCH (08:00)
[2024-01-04] MEDS: K and/or MAG REPLACEMENT MC SCH (08:00)
[2024-01-04] MEDS: cholecalciferol (vitamin D3) 1,000 unit (25mcg) tablet PO SCH (08:00)
[2024-01-04] MEDS: normal saline 1000ml 1,000 ML IV SCH (14:33)
[2024-01-04] MEDS: HYDROmorphone inj. 0.5 MG/0.5 ML DISP.SYRIN IV PRN ×2 (18:04→22:53)
[2024-01-04] MEDS: LIDOcaine 5% patch TP SCH (20:00)
[2024-01-05 06:00] VITALS: BP 125/60; PULSE 105; RESP 18; TEMP 98.7; O2SAT 97
[2024-01-05] MEDS ORDERED: LIDOcaine 5% patch TP SCH (08:00)
[2024-01-05 08:08] LABS: BASOPHILS % (AUTO) 0.2 % (0-1); EOSINOPHILS % (AUTO) 0.1 % (0-6); HEMATOCRIT 27.8 % (35.0-45.0); LYMPHOCYTES # (AUTO) 0.7 X10'3 (1.1-4.8); LYMPHOCYTES % (AUTO) 9.1 % (21-51); MEAN CORPUSCULAR HEMOGLOBIN 28.4 PG (27.0-31.0); MEAN CORPUSCULAR HGB CONC 32.5 g/dL (33.0-36.5); MEAN CORPUSCULAR VOLUME 87.4 FL (78-98); MEAN PLATELET VOLUME 9.1 FL (7.4-10.4); MONOCYTES # (AUTO) 0.8 X10'3 (0-0.9); NEUTROPHILS % (AUTO) 80.6 % (42-75); PLATELET COUNT 168 X10'3 (140-440); RED BLOOD COUNT 3.18 X10'6 (4.20-5.60); RED CELL DISTRIBUTION WIDTH 16.5 % (11.5-14.5); WHITE BLOOD COUNT 7.5 X10'3 (4.5-11.0)
[2024-01-05 08:18] LABS: APTT 35 SECONDS (22-32); INR 2.2 INR; PROTHROMBIN TIME 21.6 SECONDS (9.0-12.0)
[2024-01-05] MEDS: vancomycin 1,000mg inj ONE (08:24)
[2024-01-05 08:27] LABS: MAGNESIUM 1.9 MG/DL (1.5-2.4); POTASSIUM 4.3 MMOL/L (3.5-5.1)
[2024-01-05] MEDS ORDERED: phytonadione inj. 5 MG in normal saline 100ml IV soln 100 ML IV ONE (08:40)
[2024-01-05] MEDS: phytonadione 10 MG/1 ML amp PO ONE (09:38)
[2024-01-05 11:00] VITALS: BP 125/65; PULSE 107; RESP 12; TEMP 98.3; O2SAT 97
[2024-01-05 11:43] LABS: INR 2.1 INR; PROTHROMBIN TIME 21.5 SECONDS (9.0-12.0)
[2024-01-05] MEDS: phytonadione inj. 5 MG in normal saline 100ml IV soln 100 ML IV ONE (12:39)
[2024-01-05 15:15] LABS: INR 1.7 INR; PROTHROMBIN TIME 17.7 SECONDS (9.0-12.0)
[2024-01-05] MEDS: HYDROmorphone 1 mg/ml syringe IV PRN (15:20)
[2024-01-05 18:00] VITALS: BP 119/40; PULSE 67; RESP 16; TEMP 98.1; O2SAT 94
[2024-01-05 22:00] VITALS: BP 127/60; PULSE 88; RESP 14; TEMP 98.1; O2SAT 98
[2024-01-06] VITALS (16 sets, daily range): BP systolic 116–153; BP diastolic 40–84; PULSE 65–103; RESP 10–20; TEMP 97.8–98; O2SAT 96–100
[2024-01-06 08:35] LABS: BASOPHILS % (AUTO) 0.5 % (0-1); EOSINOPHILS % (AUTO) 0.3 % (0-6); HEMATOCRIT 25.5 % (35.0-45.0); HEMOGLOBIN 8.3 g/dl (12.0-16.0); LYMPHOCYTES # (AUTO) 0.6 X10'3 (1.1-4.8); LYMPHOCYTES % (AUTO) 10.3 % (21-51); MEAN CORPUSCULAR HEMOGLOBIN 28.9 PG (27.0-31.0); MEAN CORPUSCULAR HGB CONC 32.5 g/dL (33.0-36.5); MEAN CORPUSCULAR VOLUME 88.8 FL (78-98); MONOCYTES # (AUTO) 0.7 X10'3 (0-0.9); MONOCYTES % (AUTO) 10.6 % (2-12); NEUTROPHILS # (AUTO) 4.8 X10'3 (1.8-7.7); NEUTROPHILS % (AUTO) 78.3 % (42-75); PLATELET COUNT 160 X10'3 (140-440); RED BLOOD COUNT 2.87 X10'6 (4.20-5.60); RED CELL DISTRIBUTION WIDTH 16.6 % (11.5-14.5); WHITE BLOOD COUNT 6.2 X10'3 (4.5-11.0)
[2024-01-06 08:48] LABS: APTT 25 SECONDS (22-32); INR 1.2 INR; PROTHROMBIN TIME 12.3 SECONDS (9.0-12.0)
[2024-01-06 09:48] LABS: MAGNESIUM 1.7 MG/DL (1.5-2.4)
[2024-01-06] MEDS: ringers solution, lacted 1,000 ML IV SCH (13:40)
[2024-01-06] MEDS ORDERED: ondansetron/PF 4mg/2ml inj IV PRN (13:40)
[2024-01-06] MEDS ORDERED: meperidine/PF 25mg/ml syringe IV PRN ×2 (13:40)
[2024-01-06] MEDS ORDERED: morphine 4 MG/ML inj SYRINge IV PRN (13:40)
[2024-01-06] MEDS ORDERED: proCHLORperazine 10 MG/2 ml inj IV PRN (13:40)
[2024-01-06] MEDS ORDERED: labetalol 20mg/4ml (5mg/ml) syringe IV PRN (13:40)
[2024-01-06] MEDS ORDERED: enalaprilat dihydrate 2.5mg/2ml vial IV PRN (13:40)
[2024-01-06] MEDS ORDERED: morphine 2 MG/ML inj. syringe IV PRN (13:40)
[2024-01-06] MEDS ORDERED: BUPIVAcaine/dex-water/PF 7.5 mg/ml 2ml ampul ONE (16:32)
[2024-01-06] MEDS ORDERED: midazolam 1 mg/ML 2ml injection ONE (16:47)
[2024-01-06] MEDS ORDERED: fentaNYL/PF 50MCG/1 ML 2ML syringe ONE (16:47)
[2024-01-06] MEDS: ceFAZolin 1000mg inj ONE (17:17)
[2024-01-06] MEDS ORDERED: ceFAZolin 1000mg inj ONE (17:22)
[2024-01-06] MEDS: vancomycin 1,000mg inj ONE (17:43)
[2024-01-06] MEDS: meperidine/PF 25mg/ml syringe IV PRN (19:24)
[2024-01-06] MEDS: tranexamic acid inj. 1,000 MG in normal saline 100ml IV soln 100 ML IV ONE (19:25)
[2024-01-06] MEDS ORDERED: naloxone 0.4 mg/ml inj IV PRN (19:25)
[2024-01-06] MEDS ORDERED: HYDROmorphone/PF 0.2 MG/ML SYRINGE IV PRN (19:40)
[2024-01-06] MEDS ORDERED: vancomycin/NS 1 GM ADD-VANTAGE 250 ML IV SCH (20:00)
[2024-01-06] MEDS: tranexamic acid inj. 1,000 MG in normal saline 100ml IV soln 90 ML IV ONE (20:00)
[2024-01-06] MEDS ORDERED: VANCOMYCIN 1,500MG inj. 1,500 MG in normal saline 500ml IV soln 300 ML IV ONE (20:00)
[2024-01-06] MEDS: LIDOcaine 5% patch TP SCH (21:00)
[2024-01-07] VITALS (9 sets, daily range): BP systolic 113–147; BP diastolic 3–96; PULSE 53–108; RESP 13–18; TEMP 96.3–98.6; O2SAT 96–100
[2024-01-07] MEDS: potassium Cl 20mEq in NS 1,000 ML IV SCH (01:01)
[2024-01-07] MEDS: ceFAZolin/D5W- 1GM premix 50 ML IV SCH (01:42)
[2024-01-07] MEDS: vancomycin/NS 1 GM ADD-VANTAGE 250 ML IV SCH (05:03)
[2024-01-07 06:01] LABS: BASOPHILS % (AUTO) 0.4 % (0-1); EOSINOPHILS % (AUTO) 0.3 % (0-6); HEMATOCRIT 31.3 % (35.0-45.0); HEMOGLOBIN 10.3 g/dl (12.0-16.0); LYMPHOCYTES # (AUTO) 0.5 X10'3 (1.1-4.8); LYMPHOCYTES % (AUTO) 5.9 % (21-51); MEAN CORPUSCULAR HEMOGLOBIN 29.5 PG (27.0-31.0); MEAN CORPUSCULAR VOLUME 89.4 FL (78-98); MONOCYTES # (AUTO) 0.8 X10'3 (0-0.9); MONOCYTES % (AUTO) 9.8 % (2-12); NEUTROPHILS # (AUTO) 7.2 X10'3 (1.8-7.7); NEUTROPHILS % (AUTO) 83.6 % (42-75); PLATELET COUNT 141 X10'3 (140-440); RED CELL DISTRIBUTION WIDTH 16.6 % (11.5-14.5); WHITE BLOOD COUNT 8.6 X10'3 (4.5-11.0)
[2024-01-07 06:08] LABS: INR 1.1 INR; PROTHROMBIN TIME 11.7 SECONDS (9.0-12.0)
[2024-01-07] MEDS: enoxaparin 40mg/0.4ml syringe SQ SCH (07:08)
[2024-01-07 08:43] LABS: MAGNESIUM 1.8 MG/DL (1.5-2.4); POTASSIUM 3.8 MMOL/L (3.5-5.1)
[2024-01-07] MEDS ORDERED: HYDROmorphone 1mg tablet (1/2 of 2mg tablet) PO PRN (09:30)
[2024-01-07] MEDS ORDERED: HYDROmorphone inj. 0.5 MG/0.5 ML DISP.SYRIN IV PRN ×2 (09:30→11:35)
[2024-01-07] MEDS: HYDROmorphone 1 mg/ml syringe IV PRN ×2 (10:02→15:22)
[2024-01-07] MEDS: magnesium hydroxide 30ml (MOM) UD suspension PO PRN (12:39)
[2024-01-07] MEDS: lactose-reduced food (Ensure Enlive) - 237ml bottle PO SCH (13:00)
[2024-01-07 13:30] LABS: ALANINE AMINOTRANSFERASE 18 U/L (12-78); ALBUMIN 2.5 G/DL (3.4-5.0); ALBUMIN/GLOBULIN RATIO 0.8 (1.1-1.5); ALKALINE PHOSPHATASE 75 IU/L (46-116); ANION GAP 5 (8-16); ASPARTATE AMINO TRANSFERASE 24 U/L (10-37); BILIRUBIN,TOTAL 1.4 MG/DL (0.1-1.0); BLOOD UREA NITROGEN 13 MG/DL (7-18); BUN/CREATININE RATIO 19.7 (10.0-20.0); CALCIUM 8.2 MG/DL (8.5-10.1); CHLORIDE 106 MMOL/L (99-107); CREATININE 0.66 MG/DL (0.40-0.90); GLUCOSE 97 MG/DL (70-104); POTASSIUM 3.7 MMOL/L (3.5-5.1); SODIUM 137 MMOL/L (135-145); TOTAL CARBON DIOXIDE 25.9 MMOL/L (24-32); TOTAL PROTEIN 5.8 G/DL (6.4-8.2); eCRCL 48 ML/MIN; eGFR 84 ML/MIN
[2024-01-07] MEDS: HYDROmorphone 2mg tablet PO PRN ×2 (13:49→19:48)
[2024-01-07] MEDS: acetaminophen 325mg tablet PO PRN (19:48)
[2024-01-07] MEDS ORDERED: warfarin 5mg tablet PO ONE (21:00)
[2024-01-08 06:59] VITALS: BP 123/57; PULSE 75; RESP 16; TEMP 97.1; O2SAT 98
[2024-01-08 07:53] LABS: INR 1.2 INR; PROTHROMBIN TIME 12.4 SECONDS (9.0-12.0)
[2024-01-08 08:07] LABS: BASOPHILS % (AUTO) 0.3 % (0-1); EOSINOPHILS % (AUTO) 0.5 % (0-6); HEMATOCRIT 26.7 % (35.0-45.0); HEMOGLOBIN 8.9 g/dl (12.0-16.0); LYMPHOCYTES # (AUTO) 0.6 X10'3 (1.1-4.8); LYMPHOCYTES % (AUTO) 8.4 % (21-51); MEAN CORPUSCULAR HEMOGLOBIN 29.1 PG (27.0-31.0); MEAN CORPUSCULAR HGB CONC 33.3 g/dL (33.0-36.5); MEAN CORPUSCULAR VOLUME 87.5 FL (78-98); MEAN PLATELET VOLUME 9.1 FL (7.4-10.4); MONOCYTES # (AUTO) 0.8 X10'3 (0-0.9); NEUTROPHILS # (AUTO) 5.2 X10'3 (1.8-7.7); NEUTROPHILS % (AUTO) 78.8 % (42-75); PLATELET COUNT 148 X10'3 (140-440); RED BLOOD COUNT 3.05 X10'6 (4.20-5.60); RED CELL DISTRIBUTION WIDTH 16.5 % (11.5-14.5); WHITE BLOOD COUNT 6.7 X10'3 (4.5-11.0)
[2024-01-08 08:10] VITALS: RESP 16; O2SAT 98
[2024-01-08] MEDS ORDERED: LIDO700A47 TP (12:57)
[2024-01-08] MEDS ORDERED: ENOX40DI11 SQ (12:57)
[2024-01-08] MEDS ORDERED: ACET-1008 PO (13:02)
[2024-01-08 17:36] VITALS: RESP 16
== END 2024-01-08 18:00 | DRG 481 ==
LOC: ER 15:57 → ED HOLD 22:38 → ORTHO 4S 01-04
PROVIDERS: ADMIT Internal Medicine Critical Care Medicine; ATTEND Internal Medicine
PROC: BW251ZZ Computerized Tomography (CT Scan) of Chest, Abdomen and Pelvis using Low Osmolar Contrast (ICD-10-PCS; 2024-01-03)
PROC: 30233N1 Transfusion of Nonautologous Red Blood Cells into Peripheral Vein, Percutaneous Approach (ICD-10-PCS; 2024-01-06)
PROC: 0QSB04Z Reposition Right Lower Femur with Internal Fixation Device, Open Approach (ICD-10-PCS; principal; 2024-01-06 16:32)
DX: S72.491A Other fracture of lower end of right femur, initial encounter for closed fracture (principal); D68.69 Other thrombophilia; M25.061 Hemarthrosis, right knee; M97.11XA Periprosthetic fracture around internal prosthetic right knee joint, initial encounter; I48.91 Unspecified atrial fibrillation; X58.XXXA Exposure to other specified factors, initial encounter; Y93.89 Activity, other specified; Y92.89 Other specified places as the place of occurrence of the external cause; Y99.8 Other external cause status; Z79.899 Other long term (current) drug therapy; E78.5 Hyperlipidemia, unspecified; R32 Unspecified urinary incontinence; M81.0 Age-related osteoporosis without current pathological fracture; W18.39XA Other fall on same level, initial encounter; M19.09 Primary osteoarthritis, other specified site; F41.9 Anxiety disorder, unspecified; E66.9 Obesity, unspecified; Z68.37 Body mass index [BMI] 37.0-37.9, adult
CPT/HCPCS: 36415; 70450; 71260; 72125; 73502; 73552; 73560; 74018; 74177; 76000; 80048; 80053; 82948; 83735; 84132; 84145; 84484; 85025; 85610; 85730; 86885; 86900; 86901; 86920; 87081; 92508; 92616; 93005; 96374; 96375; 97110; 97161; 97530; 97535; 99285; A4314; A4615; A4618; A6213; A6258; A7000; C1713; G0378; J0131; J0690; J1170; J1650; J2175; J2250; J2270; J2405; J3010; J3370; J3430; J3480; J3490; J7030; P9016; Q9967

== ENCOUNTER → 2024-02-08 | Outpatient (CLI) | payer MEDICARE, MEDICAID ==
[~2024-02-08] MED LIST changes: +ACET-1008 PO; -ASPI81TA53 PO; +BISA10SU62 RC; +DOCU-148 PO; +ENOX40DI11 SQ; -ENOX40SY7 SQ; +GUAI400T92 PO; +LIDO700A47 TP; +MAG355OR18 PO; +MELA1TAB28 PO; +NA P RC; -NITR50CA PO; +ONDA4TAB12 PO; +OXYC-150 PO; +POLY17PO10 PO; +SENN-294 PO; +SIME80TA15 PO; +WARF4TAB69 PO
== END | disposition home or self-care (01) ==
LOC: LAB 20:54
PROVIDERS: ATTEND Family Medicine
DX: L08.9 Local infection of the skin and subcutaneous tissue, unspecified (principal)
CPT/HCPCS: 87070

== ENCOUNTER 2024-05-31 15:36 | Inpatient (IN) | payer MEDICARE, MEDICAID ==
[~2024-05-31] VITALS: Ht 160 cm; Wt 79.1 kg
[~2024-05-31 15:36] MED LIST changes: -ENOX40DI11 SQ; -NA P RC; +ONDA-243 PO; -ONDA4TAB12 PO; +SODI133E14 RC; -WARF7.5T48 PO
[2024-05-31] MEDS: HYDROcodone/acetaminophen 10/325mg tab PO ONE (19:43)
[2024-05-31] MEDS: normal saline 1000ML IV soln IV ONE (21:28)
[2024-05-31] MEDS: vancomycin/NS 1 GM ADD-VANTAGE 250 ML IV ONE (21:28)
[2024-05-31 21:39] LABS: ALBUMIN 2.7 G/DL (3.4-5.0); ANION GAP 8 (8-16); BLOOD UREA NITROGEN 23 MG/DL (7-18); BUN/CREATININE RATIO 21.3 (10.0-20.0); CALCIUM 8.7 MG/DL (8.5-10.1); CHLORIDE 97 MMOL/L (99-107); CREATININE 1.08 MG/DL (0.40-0.90); GLUCOSE 100 MG/DL (70-104); MAGNESIUM 1.9 MG/DL (1.5-2.4); POTASSIUM 3.8 MMOL/L (3.5-5.1); SODIUM 130 MMOL/L (135-145); TOTAL CARBON DIOXIDE 25.4 MMOL/L (24-32); eCRCL 29 ML/MIN; eGFR 48 ML/MIN
[2024-05-31 21:40] LABS: BASOPHILS % (AUTO) 0.2 % (0-1); EOSINOPHILS % (AUTO) 0.4 % (0-6); HEMATOCRIT 28.6 % (35.0-45.0); HEMOGLOBIN 9.5 g/dl (12.0-16.0); LYMPHOCYTES # (AUTO) 0.9 X10'3 (1.1-4.8); LYMPHOCYTES % (AUTO) 16.3 % (21-51); MEAN CORPUSCULAR HEMOGLOBIN 29.5 PG (27.0-31.0); MEAN CORPUSCULAR HGB CONC 33.3 g/dL (33.0-36.5); MEAN CORPUSCULAR VOLUME 88.6 FL (78-98); MEAN PLATELET VOLUME 8.8 FL (7.4-10.4); MONOCYTES # (AUTO) 0.8 X10'3 (0-0.9); MONOCYTES % (AUTO) 15.1 % (2-12); NEUTROPHILS # (AUTO) 3.7 X10'3 (1.8-7.7); PLATELET COUNT 185 X10'3 (140-440); RED BLOOD COUNT 3.23 X10'6 (4.20-5.60); RED CELL DISTRIBUTION WIDTH 15.5 % (11.5-14.5); WHITE BLOOD COUNT 5.5 X10'3 (4.5-11.0)
[2024-06-01] MEDS ORDERED: magnesium sulf-water 4G/100mL 100 ML IV PRN
[2024-06-01] MEDS ORDERED: potassium Cl 20 mEq SR tablet PO PRN ×2
[2024-06-01] MEDS ORDERED: potassium Cl 40MEQ/1/2NS 520ml 520 ML IV PRN
[2024-06-01] MEDS ORDERED: magnesium Cl slow-release 64mg tablet PO PRN
[2024-06-01] MEDS ORDERED: magnesium sulf-water 2g/50mL 50 ML IV PRN
[2024-06-01] MEDS ORDERED: morphine 2 MG/ML inj. syringe IV PRN
[2024-06-01] MEDS ORDERED: ondansetron/PF 4mg/2ml inj IV PRN
[2024-06-01 00:17] LABS: BILIRUBIN,URINE NEGATIVE (Neg); CLARITY,URINE CLOUDY (Clear); COLOR,URINE YELLOW (Yellow); GLUCOSE, URINE NEGATIVE (Neg); KETONES,URINE TRACE mg/dl (Neg); LEUKOCYTE ESTERASE ,URINE SMALL (Neg); NITRITES, URINE NEGATIVE (Neg); OCCULT BLOOD,URINE SMALL (Neg); PROTEIN,URINE 30 mg/dl (Neg); UROBILINOGEN,URINE 0.2 E.U/dL (0.2-1.0)
[2024-06-01] MEDS: morphine 2 MG/ML inj. syringe IV PRN (00:35)
[2024-06-01 00:38] LABS: UA COLLECTION TYPE URINAL
[2024-06-01 00:41] LABS: WBC,URINE TNTC /HPF (0-4)
[2024-06-01 00:42] LABS: BACTERIA,URINE 4+ /HPF (Neg); SQUAMOUS EPITHELIAL CELL,UR FEW /LPF (FEW); TRANSITIONAL EPI CELLS,URINE FEW /HPF
[2024-06-01 00:43] LABS: AMORPHOUS URATES 1+
[2024-06-01 00:46] LABS: HEMOGLOBIN A1C 5.5 % (4.5-6.2)
[2024-06-01] MEDS: HYDROcodone/acetaminophen 5mg/325mg tablet PO PRN (02:31)
[2024-06-01 06:00] VITALS: BP 130/57; PULSE 82; RESP 14; TEMP 97.5; O2SAT 96
[2024-06-01 07:36] LABS: BASOPHILS % (AUTO) 0.8 % (0-1); HEMATOCRIT 26.8 % (35.0-45.0); HEMOGLOBIN 8.8 g/dl (12.0-16.0); LYMPHOCYTES # (AUTO) 0.8 X10'3 (1.1-4.8); LYMPHOCYTES % (AUTO) 19.5 % (21-51); MEAN CORPUSCULAR HEMOGLOBIN 29.5 PG (27.0-31.0); MEAN CORPUSCULAR HGB CONC 32.9 g/dL (33.0-36.5); MEAN CORPUSCULAR VOLUME 89.5 FL (78-98); MEAN PLATELET VOLUME 8.5 FL (7.4-10.4); MONOCYTES # (AUTO) 0.6 X10'3 (0-0.9); MONOCYTES % (AUTO) 14.7 % (2-12); NEUTROPHILS # (AUTO) 2.5 X10'3 (1.8-7.7); PLATELET COUNT 166 X10'3 (140-440); RED BLOOD COUNT 2.99 X10'6 (4.20-5.60); RED CELL DISTRIBUTION WIDTH 15.3 % (11.5-14.5)
[2024-06-01 07:57] LABS: ALANINE AMINOTRANSFERASE 15 U/L (12-78); ALBUMIN 2.3 G/DL (3.4-5.0); ALBUMIN/GLOBULIN RATIO 0.7 (1.1-1.5); ALKALINE PHOSPHATASE 70 IU/L (46-116); ANION GAP 5 (8-16); ASPARTATE AMINO TRANSFERASE 17 U/L (10-37); BILIRUBIN,TOTAL 0.6 MG/DL (0.1-1.0); BLOOD UREA NITROGEN 18 MG/DL (7-18); BUN/CREATININE RATIO 19.8 (10.0-20.0); CALCIUM 8.2 MG/DL (8.5-10.1); CHLORIDE 102 MMOL/L (99-107); CHOLESTEROL 126 MG/DL (0-200); CREATININE 0.91 MG/DL (0.40-0.90); GLUCOSE 91 MG/DL (70-104); HDL CHOLESTEROL 64 MG/DL (35-60); LDL CHOLESTEROL 50 MG/DL (50-100); MAGNESIUM 1.9 MG/DL (1.5-2.4); POTASSIUM 3.6 MMOL/L (3.5-5.1); SODIUM 134 MMOL/L (135-145); TOTAL CARBON DIOXIDE 26.9 MMOL/L (24-32); TOTAL PROTEIN 5.8 G/DL (6.4-8.2); TRIGLYCERIDES 41 MG/DL (20-135); eCRCL 35 ML/MIN; eGFR 58 ML/MIN
[2024-06-01 08:00] VITALS: RESP 16; O2SAT 98
[2024-06-01] MEDS ORDERED: heparin, porcine 5000 units/ml vial SQ SCH (08:00)
[2024-06-01] MEDS: K and/or MAG REPLACEMENT MC SCH (08:00)
[2024-06-01] MEDS: normal saline 1000ml 1,000 ML IV ONE (08:00)
[2024-06-01 08:11] LABS: % IRON SATURATION 4 % (11-46); IRON 9 UG/DL (49-151); TOTAL IRON BINDING CAPACITY 208 UG/DL (259-388)
[2024-06-01] MEDS: docusate sod 100mg capsule PO SCH (08:16)
[2024-06-01] MEDS: ceFAZolin 2gm in dextrose, iso 50 ML IV SCH (08:16)
[2024-06-01 08:18] LABS: FERRITIN 194 NG/ML (8-252)
[2024-06-01] MEDS: iron sucrose complex injection 300 MG in normal saline 250ml IV soln 250 ML IV SCH (09:25)
[2024-06-01 10:00] VITALS: BP 110/48; PULSE 72; RESP 16; TEMP 97.9; O2SAT 98
[2024-06-01 18:00] VITALS: BP 140/78; PULSE 62; RESP 16; TEMP 98.1; O2SAT 97
[2024-06-01] MEDS ORDERED: oxyCODONE/APAP 10/325mg tablet PO PRN (21:30)
[2024-06-01] MEDS ORDERED: simethicone 80mg chew tab PO PRN (21:30)
[2024-06-01 22:00] VITALS: BP 120/45; PULSE 78; RESP 16; TEMP 99.2; O2SAT 94
[2024-06-01 23:13] LABS: INR 3.2 INR; PROTHROMBIN TIME 30.8 SECONDS (9.0-12.0)
[2024-06-01] MEDS ORDERED: guaiFENesin 200 MG/10 ML oral syrup UD cup PO PRN (23:45)
[2024-06-02] MEDS ORDERED: guaiFENesin 200 MG/10 ML oral syrup UD cup PO SCH (02:00)
[2024-06-02 06:00] VITALS: BP 135/52; PULSE 70; RESP 15; TEMP 96.8; O2SAT 98
[2024-06-02 06:07] LABS: BASOPHILS % (AUTO) 0.5 % (0-1); EOSINOPHILS % (AUTO) 0.9 % (0-6); HEMATOCRIT 27.2 % (35.0-45.0); LYMPHOCYTES # (AUTO) 0.9 X10'3 (1.1-4.8); LYMPHOCYTES % (AUTO) 20.3 % (21-51); MEAN CORPUSCULAR HEMOGLOBIN 29.6 PG (27.0-31.0); MEAN CORPUSCULAR VOLUME 89.9 FL (78-98); MEAN PLATELET VOLUME 8.6 FL (7.4-10.4); MONOCYTES # (AUTO) 0.6 X10'3 (0-0.9); MONOCYTES % (AUTO) 14.3 % (2-12); NEUTROPHILS # (AUTO) 2.7 X10'3 (1.8-7.7); PLATELET COUNT 174 X10'3 (140-440); RED BLOOD COUNT 3.03 X10'6 (4.20-5.60); RED CELL DISTRIBUTION WIDTH 15.6 % (11.5-14.5); WHITE BLOOD COUNT 4.2 X10'3 (4.5-11.0)
[2024-06-02 06:13] LABS: PROTHROMBIN TIME 28.7 SECONDS (9.0-12.0)
[2024-06-02 06:28] LABS: ALANINE AMINOTRANSFERASE 12 U/L (12-78); ALBUMIN 2.2 G/DL (3.4-5.0); ALBUMIN/GLOBULIN RATIO 0.6 (1.1-1.5); ALKALINE PHOSPHATASE 82 IU/L (46-116); ANION GAP 6 (8-16); ASPARTATE AMINO TRANSFERASE 12 U/L (10-37); BILIRUBIN,TOTAL 0.4 MG/DL (0.1-1.0); BLOOD UREA NITROGEN 12 MG/DL (7-18); BUN/CREATININE RATIO 15.6 (10.0-20.0); CALCIUM 8.5 MG/DL (8.5-10.1); CHLORIDE 102 MMOL/L (99-107); CREATININE 0.77 MG/DL (0.40-0.90); GLUCOSE 87 MG/DL (70-104); POTASSIUM 3.9 MMOL/L (3.5-5.1); SODIUM 135 MMOL/L (135-145); TOTAL CARBON DIOXIDE 26.8 MMOL/L (24-32); TOTAL PROTEIN 5.9 G/DL (6.4-8.2); eCRCL 41 ML/MIN; eGFR 71 ML/MIN
[2024-06-02] MEDS: cholecalciferol (vitamin D3) 1,000 unit (25mcg) tablet PO SCH (07:24)
[2024-06-02] MEDS: atorvastatin 20mg tablet PO SCH (07:24)
[2024-06-02] MEDS: CITALOpram 10mg tablet PO SCH (07:24)
[2024-06-02] MEDS: amiodarone 100mg tablet PO SCH (07:24)
[2024-06-02] MEDS: bisacodyl 10mg suppository rectal RC SCH (07:25)
[2024-06-02] MEDS: LIDOcaine 5% patch TP SCH (07:31)
[2024-06-02] MEDS ORDERED: docusate sod 100mg capsule PO SCH (08:00)
[2024-06-02 10:00] VITALS: BP 131/68; PULSE 85; RESP 16; TEMP 98; O2SAT 94
[2024-06-02] MEDS: acetaminophen 325mg tablet PO PRN (17:53)
[2024-06-02 18:00] VITALS: BP 124/57; PULSE 82; RESP 16; TEMP 97.7; O2SAT 97
[2024-06-02 20:00] VITALS: RESP 16; O2SAT 82
[2024-06-02] MEDS: warfarin 1mg tablet PO ONE (20:30)
[2024-06-02] MEDS: magnesium hydroxide 30ml (MOM) UD suspension PO PRN (21:53)
[2024-06-02] MEDS: polyethylene glycol 3350 17gm powd pack PO PRN (21:53)
[2024-06-02 22:00] VITALS: BP 112/53; PULSE 66; RESP 15; TEMP 98.4; O2SAT 95
[2024-06-03 06:00] VITALS: BP 142/65; PULSE 75; RESP 13; TEMP 97.4; O2SAT 95
[2024-06-03 08:00] VITALS: RESP 13; O2SAT 95
[2024-06-03 08:27] LABS: BASOPHILS % (AUTO) 0.7 % (0-1); EOSINOPHILS % (AUTO) 1.2 % (0-6); HEMATOCRIT 25.5 % (35.0-45.0); HEMOGLOBIN 8.4 g/dl (12.0-16.0); LYMPHOCYTES # (AUTO) 0.9 X10'3 (1.1-4.8); LYMPHOCYTES % (AUTO) 21.6 % (21-51); MEAN CORPUSCULAR HEMOGLOBIN 29.3 PG (27.0-31.0); MEAN CORPUSCULAR HGB CONC 33.1 g/dL (33.0-36.5); MEAN CORPUSCULAR VOLUME 88.6 FL (78-98); MEAN PLATELET VOLUME 8.5 FL (7.4-10.4); MONOCYTES # (AUTO) 0.4 X10'3 (0-0.9); NEUTROPHILS # (AUTO) 2.9 X10'3 (1.8-7.7); NEUTROPHILS % (AUTO) 66.5 % (42-75); PLATELET COUNT 189 X10'3 (140-440); RED BLOOD COUNT 2.87 X10'6 (4.20-5.60); RED CELL DISTRIBUTION WIDTH 15.3 % (11.5-14.5); WHITE BLOOD COUNT 4.3 X10'3 (4.5-11.0)
[2024-06-03 08:32] LABS: ALANINE AMINOTRANSFERASE 9 U/L (12-78); ALBUMIN 2.1 G/DL (3.4-5.0); ALBUMIN/GLOBULIN RATIO 0.6 (1.1-1.5); ALKALINE PHOSPHATASE 83 IU/L (46-116); ANION GAP 5 (8-16); ASPARTATE AMINO TRANSFERASE 11 U/L (10-37); BILIRUBIN,TOTAL 0.4 MG/DL (0.1-1.0); BLOOD UREA NITROGEN 9 MG/DL (7-18); BUN/CREATININE RATIO 12.7 (10.0-20.0); CALCIUM 8.3 MG/DL (8.5-10.1); CHLORIDE 101 MMOL/L (99-107); CREATININE 0.71 MG/DL (0.40-0.90); GLUCOSE 90 MG/DL (70-104); MAGNESIUM 1.9 MG/DL (1.5-2.4); POTASSIUM 3.6 MMOL/L (3.5-5.1); SODIUM 134 MMOL/L (135-145); TOTAL PROTEIN 5.7 G/DL (6.4-8.2); eCRCL 44 ML/MIN; eGFR 78 ML/MIN
[2024-06-03 08:33] LABS: INR 2.8 INR; PROTHROMBIN TIME 27.4 SECONDS (9.0-12.0)
[2024-06-03 10:00] VITALS: BP 141/60; PULSE 77; RESP 14; TEMP 98.5; O2SAT 97
[2024-06-03 18:00] VITALS: BP 144/73; PULSE 80; RESP 16; TEMP 99.3; O2SAT 97
[2024-06-03] MEDS: HYDROcodone/acetaminophen 10/325mg tab PO PRN (19:41)
[2024-06-03 20:00] VITALS: RESP 16; O2SAT 97
[2024-06-03] MEDS: warfarin 1mg tablet PO ONE (20:45)
[2024-06-03 22:00] VITALS: BP 124/59; PULSE 81; RESP 16; TEMP 96.9; O2SAT 94
[2024-06-04 06:00] VITALS: BP 139/81; PULSE 72; RESP 16; TEMP 97; O2SAT 93
[2024-06-04 06:11] LABS: INR 2.4 INR
[2024-06-04 06:15] LABS: BASOPHILS % (AUTO) 0.3 % (0-1); EOSINOPHILS # (AUTO) 0.1 X10'3 (0-0.9); EOSINOPHILS % (AUTO) 1.2 % (0-6); HEMATOCRIT 27.5 % (35.0-45.0); HEMOGLOBIN 9.2 g/dl (12.0-16.0); LYMPHOCYTES % (AUTO) 16.4 % (21-51); MEAN CORPUSCULAR HEMOGLOBIN 29.4 PG (27.0-31.0); MEAN CORPUSCULAR HGB CONC 33.3 g/dL (33.0-36.5); MEAN CORPUSCULAR VOLUME 88.5 FL (78-98); MEAN PLATELET VOLUME 8.5 FL (7.4-10.4); MONOCYTES # (AUTO) 0.6 X10'3 (0-0.9); MONOCYTES % (AUTO) 9.9 % (2-12); NEUTROPHILS # (AUTO) 4.3 X10'3 (1.8-7.7); NEUTROPHILS % (AUTO) 72.2 % (42-75); PLATELET COUNT 239 X10'3 (140-440); RED BLOOD COUNT 3.11 X10'6 (4.20-5.60); RED CELL DISTRIBUTION WIDTH 15.3 % (11.5-14.5)
[2024-06-04 06:20] LABS: ALBUMIN 2.2 G/DL (3.4-5.0); ALBUMIN/GLOBULIN RATIO 0.6 (1.1-1.5); ALKALINE PHOSPHATASE 104 IU/L (46-116); ANION GAP 4 (8-16); ASPARTATE AMINO TRANSFERASE 20 U/L (10-37); BILIRUBIN,TOTAL 0.4 MG/DL (0.1-1.0); BLOOD UREA NITROGEN 8 MG/DL (7-18); BUN/CREATININE RATIO 10.7 (10.0-20.0); CALCIUM 8.3 MG/DL (8.5-10.1); CHLORIDE 99 MMOL/L (99-107); CREATININE 0.75 MG/DL (0.40-0.90); GLUCOSE 91 MG/DL (70-104); MAGNESIUM 1.9 MG/DL (1.5-2.4); POTASSIUM 3.9 MMOL/L (3.5-5.1); SODIUM 133 MMOL/L (135-145); TOTAL CARBON DIOXIDE 29.9 MMOL/L (24-32); TOTAL PROTEIN 6.1 G/DL (6.4-8.2); eCRCL 42 ML/MIN; eGFR 73 ML/MIN
[2024-06-04 06:21] LABS: ALANINE AMINOTRANSFERASE < 6 U/L (12-78)
[2024-06-04 10:00] VITALS: BP 118/51; PULSE 92; RESP 16; TEMP 98.2; O2SAT 96
[2024-06-04 18:00] VITALS: BP 143/63; PULSE 75; RESP 18; TEMP 98.1; O2SAT 98
[2024-06-04] MEDS: warfarin 1mg tablet PO ONE (19:59)
[2024-06-04 22:00] VITALS: BP 136/76; PULSE 77; RESP 16; TEMP 97.1; O2SAT 95
[2024-06-05 05:57] LABS: BASOPHILS % (AUTO) 0.4 % (0-1); EOSINOPHILS # (AUTO) 0.1 X10'3 (0-0.9); EOSINOPHILS % (AUTO) 1.7 % (0-6); HEMATOCRIT 29.6 % (35.0-45.0); HEMOGLOBIN 9.7 g/dl (12.0-16.0); LYMPHOCYTES # (AUTO) 0.9 X10'3 (1.1-4.8); LYMPHOCYTES % (AUTO) 14.8 % (21-51); MEAN CORPUSCULAR HEMOGLOBIN 29.2 PG (27.0-31.0); MEAN CORPUSCULAR HGB CONC 32.7 g/dL (33.0-36.5); MEAN CORPUSCULAR VOLUME 89.4 FL (78-98); MEAN PLATELET VOLUME 8.1 FL (7.4-10.4); MONOCYTES # (AUTO) 0.5 X10'3 (0-0.9); MONOCYTES % (AUTO) 8.3 % (2-12); NEUTROPHILS # (AUTO) 4.6 X10'3 (1.8-7.7); NEUTROPHILS % (AUTO) 74.8 % (42-75); PLATELET COUNT 285 X10'3 (140-440); RED BLOOD COUNT 3.31 X10'6 (4.20-5.60); RED CELL DISTRIBUTION WIDTH 15.8 % (11.5-14.5); WHITE BLOOD COUNT 6.1 X10'3 (4.5-11.0)
[2024-06-05 06:00] VITALS: BP 144/78; PULSE 73; RESP 16; TEMP 97.7; O2SAT 99
[2024-06-05 06:02] LABS: INR 2.4 INR; PROTHROMBIN TIME 23.2 SECONDS (9.0-12.0)
[2024-06-05 06:08] LABS: ALANINE AMINOTRANSFERASE 7 U/L (12-78); ALBUMIN 2.4 G/DL (3.4-5.0); ALBUMIN/GLOBULIN RATIO 0.6 (1.1-1.5); ALKALINE PHOSPHATASE 119 IU/L (46-116); ANION GAP 5 (8-16); ASPARTATE AMINO TRANSFERASE 16 U/L (10-37); BILIRUBIN,TOTAL 0.4 MG/DL (0.1-1.0); BLOOD UREA NITROGEN 9 MG/DL (7-18); BUN/CREATININE RATIO 12.3 (10.0-20.0); CALCIUM 8.6 MG/DL (8.5-10.1); CHLORIDE 98 MMOL/L (99-107); CREATININE 0.73 MG/DL (0.40-0.90); GLUCOSE 94 MG/DL (70-104); POTASSIUM 3.5 MMOL/L (3.5-5.1); SODIUM 133 MMOL/L (135-145); TOTAL CARBON DIOXIDE 29.9 MMOL/L (24-32); TOTAL PROTEIN 6.7 G/DL (6.4-8.2); eCRCL 43 ML/MIN; eGFR 75 ML/MIN
[2024-06-05 10:00] VITALS: BP 111/60; PULSE 72; RESP 14; TEMP 97.2; O2SAT 95
[2024-06-05 18:00] VITALS: BP 133/74; PULSE 76; RESP 17; TEMP 98.5; O2SAT 95
[2024-06-05] MEDS: warfarin 1mg tablet PO ONE (20:37)
[2024-06-05] MEDS: CEFEPIME 2gm in D5W 50mL 50 ML IV SCH (20:38)
[2024-06-05 22:00] VITALS: BP 104/49; PULSE 77; RESP 18; TEMP 97.4; O2SAT 94
[2024-06-06 06:00] VITALS: BP 138/76; PULSE 73; RESP 14; TEMP 97.9; O2SAT 98
[2024-06-06 06:36] LABS: INR 2.2 INR; PROTHROMBIN TIME 21.3 SECONDS (9.0-12.0)
[2024-06-06 08:50] VITALS: RESP 16
[2024-06-06 11:00] VITALS: BP 122/57; PULSE 73; RESP 14; TEMP 97.7; O2SAT 94
[2024-06-06] MEDS: CefTRIAXone 2gm/D5W 50ml BAG 50 ML IV SCH (14:31)
[2024-06-06 18:00] VITALS: BP 154/75; PULSE 77; RESP 16; TEMP 98.8; O2SAT 96
[2024-06-06] MEDS: warfarin 2.5mg tablet PO ONE (21:02)
[2024-06-06 22:00] VITALS: BP 110/43; PULSE 68; RESP 15; TEMP 99; O2SAT 94
[2024-06-07] VITALS (8 sets, daily range): BP systolic 107–135; BP diastolic 49–78; PULSE 63–106; RESP 12–18; TEMP 97.4–98.9; O2SAT 94–97
[2024-06-07 06:13] LABS: BASOPHILS % (AUTO) 0.3 % (0-1); EOSINOPHILS # (AUTO) 0.1 X10'3 (0-0.9); EOSINOPHILS % (AUTO) 1.5 % (0-6); HEMATOCRIT 27.6 % (35.0-45.0); HEMOGLOBIN 8.8 g/dl (12.0-16.0); LYMPHOCYTES % (AUTO) 20.5 % (21-51); MEAN CORPUSCULAR HEMOGLOBIN 28.7 PG (27.0-31.0); MEAN CORPUSCULAR VOLUME 89.8 FL (78-98); MEAN PLATELET VOLUME 7.8 FL (7.4-10.4); MONOCYTES # (AUTO) 0.5 X10'3 (0-0.9); MONOCYTES % (AUTO) 10.2 % (2-12); NEUTROPHILS # (AUTO) 3.4 X10'3 (1.8-7.7); NEUTROPHILS % (AUTO) 67.5 % (42-75); PLATELET COUNT 261 X10'3 (140-440); RED BLOOD COUNT 3.08 X10'6 (4.20-5.60); WHITE BLOOD COUNT 5.1 X10'3 (4.5-11.0)
[2024-06-07 06:17] LABS: PROTHROMBIN TIME 19.8 SECONDS (9.0-12.0)
[2024-06-07 06:33] LABS: ALANINE AMINOTRANSFERASE 8 U/L (12-78); ALBUMIN/GLOBULIN RATIO 0.5 (1.1-1.5); ALKALINE PHOSPHATASE 99 IU/L (46-116); ANION GAP 5 (8-16); ASPARTATE AMINO TRANSFERASE 13 U/L (10-37); BILIRUBIN,TOTAL 0.3 MG/DL (0.1-1.0); BLOOD UREA NITROGEN 10 MG/DL (7-18); BUN/CREATININE RATIO 14.7 (10.0-20.0); CALCIUM 8.3 MG/DL (8.5-10.1); CHLORIDE 102 MMOL/L (99-107); CREATININE 0.68 MG/DL (0.40-0.90); GLUCOSE 84 MG/DL (70-104); POTASSIUM 3.7 MMOL/L (3.5-5.1); SODIUM 136 MMOL/L (135-145); TOTAL CARBON DIOXIDE 29.1 MMOL/L (24-32); TOTAL PROTEIN 5.7 G/DL (6.4-8.2); eCRCL 46 ML/MIN; eGFR 81 ML/MIN
[2024-06-07] MEDS: warfarin 3mg tablet PO ONE (20:43)
[2024-06-08 06:00] VITALS: BP 122/52; PULSE 71; RESP 16; TEMP 97.6; O2SAT 94
[2024-06-08 06:48] LABS: PROTHROMBIN TIME 19.8 SECONDS (9.0-12.0)
[2024-06-08 06:50] LABS: BASOPHILS % (AUTO) 0.5 % (0-1); EOSINOPHILS # (AUTO) 0.1 X10'3 (0-0.9); HEMATOCRIT 26.4 % (35.0-45.0); HEMOGLOBIN 8.7 g/dl (12.0-16.0); LYMPHOCYTES # (AUTO) 0.8 X10'3 (1.1-4.8); LYMPHOCYTES % (AUTO) 15.4 % (21-51); MEAN CORPUSCULAR HEMOGLOBIN 29.9 PG (27.0-31.0); MEAN CORPUSCULAR HGB CONC 32.9 g/dL (33.0-36.5); MEAN CORPUSCULAR VOLUME 90.8 FL (78-98); MEAN PLATELET VOLUME 7.9 FL (7.4-10.4); MONOCYTES # (AUTO) 0.5 X10'3 (0-0.9); MONOCYTES % (AUTO) 10.3 % (2-12); NEUTROPHILS # (AUTO) 3.9 X10'3 (1.8-7.7); NEUTROPHILS % (AUTO) 72.8 % (42-75); PLATELET COUNT 287 X10'3 (140-440); RED BLOOD COUNT 2.91 X10'6 (4.20-5.60); WHITE BLOOD COUNT 5.3 X10'3 (4.5-11.0)
[2024-06-08 07:08] LABS: ALBUMIN 2.1 G/DL (3.4-5.0); ALBUMIN/GLOBULIN RATIO 0.6 (1.1-1.5); ALKALINE PHOSPHATASE 101 IU/L (46-116); ANION GAP 7 (8-16); ASPARTATE AMINO TRANSFERASE 10 U/L (10-37); BILIRUBIN,TOTAL 0.3 MG/DL (0.1-1.0); BLOOD UREA NITROGEN 8 MG/DL (7-18); BUN/CREATININE RATIO 14.5 (10.0-20.0); CALCIUM 8.3 MG/DL (8.5-10.1); CHLORIDE 100 MMOL/L (99-107); CREATININE 0.55 MG/DL (0.40-0.90); GLUCOSE 85 MG/DL (70-104); POTASSIUM 3.8 MMOL/L (3.5-5.1); SODIUM 134 MMOL/L (135-145); TOTAL CARBON DIOXIDE 27.3 MMOL/L (24-32); TOTAL PROTEIN 5.5 G/DL (6.4-8.2); eCRCL 57 ML/MIN; eGFR > 90 ML/MIN
[2024-06-08 07:16] LABS: ALANINE AMINOTRANSFERASE 6 U/L (12-78)
[2024-06-08 08:00] VITALS: RESP 16; O2SAT 98
[2024-06-08 10:00] VITALS: BP 102/46; PULSE 71; RESP 16; TEMP 98.2; O2SAT 93
[2024-06-08 18:00] VITALS: BP 130/54; PULSE 71; RESP 17; TEMP 98.7; O2SAT 98
[2024-06-08 20:00] VITALS: RESP 17; O2SAT 98
[2024-06-08] MEDS: warfarin 4mg tablet PO ONE (20:44)
[2024-06-08 22:00] VITALS: BP 125/53; PULSE 70; RESP 18; TEMP 98.4; O2SAT 98
[2024-06-09] VITALS (7 sets, daily range): BP systolic 124–137; BP diastolic 57–82; PULSE 71–80; RESP 15–18; TEMP 97.5–99; O2SAT 93–97
[2024-06-09 06:25] LABS: BASOPHILS % (AUTO) 0.4 % (0-1); EOSINOPHILS # (AUTO) 0.1 X10'3 (0-0.9); EOSINOPHILS % (AUTO) 1.2 % (0-6); HEMATOCRIT 28.2 % (35.0-45.0); HEMOGLOBIN 9.2 g/dl (12.0-16.0); LYMPHOCYTES # (AUTO) 0.9 X10'3 (1.1-4.8); LYMPHOCYTES % (AUTO) 17.3 % (21-51); MEAN CORPUSCULAR HEMOGLOBIN 29.9 PG (27.0-31.0); MEAN CORPUSCULAR HGB CONC 32.8 g/dL (33.0-36.5); MEAN PLATELET VOLUME 7.9 FL (7.4-10.4); MONOCYTES # (AUTO) 0.6 X10'3 (0-0.9); MONOCYTES % (AUTO) 11.9 % (2-12); NEUTROPHILS # (AUTO) 3.6 X10'3 (1.8-7.7); NEUTROPHILS % (AUTO) 69.2 % (42-75); PLATELET COUNT 271 X10'3 (140-440); RED BLOOD COUNT 3.09 X10'6 (4.20-5.60); RED CELL DISTRIBUTION WIDTH 16.2 % (11.5-14.5); WHITE BLOOD COUNT 5.1 X10'3 (4.5-11.0)
[2024-06-09 06:26] LABS: ALBUMIN 2.1 G/DL (3.4-5.0); ALBUMIN/GLOBULIN RATIO 0.6 (1.1-1.5); ALKALINE PHOSPHATASE 109 IU/L (46-116); ANION GAP 3 (8-16); ASPARTATE AMINO TRANSFERASE 14 U/L (10-37); BILIRUBIN,TOTAL 0.3 MG/DL (0.1-1.0); BLOOD UREA NITROGEN 9 MG/DL (7-18); BUN/CREATININE RATIO 15.3 (10.0-20.0); CALCIUM 8.3 MG/DL (8.5-10.1); CHLORIDE 102 MMOL/L (99-107); CREATININE 0.59 MG/DL (0.40-0.90); GLUCOSE 89 MG/DL (70-104); POTASSIUM 3.8 MMOL/L (3.5-5.1); SODIUM 134 MMOL/L (135-145); TOTAL CARBON DIOXIDE 29.5 MMOL/L (24-32); TOTAL PROTEIN 5.7 G/DL (6.4-8.2); eCRCL 53 ML/MIN; eGFR > 90 ML/MIN
[2024-06-09 06:29] LABS: PROTHROMBIN TIME 20.3 SECONDS (9.0-12.0)
[2024-06-09 06:34] LABS: ALANINE AMINOTRANSFERASE < 6 U/L (12-78)
[2024-06-09 07:27] LABS: PLATELET ESTIMATE NORMAL; TOTAL CELLS COUNTED 100
[2024-06-09 07:28] LABS: ANISOCYTOSIS 1+
[2024-06-09] MEDS: warfarin 4mg tablet PO ONE (21:52)
[2024-06-10 06:00] VITALS: BP 149/69; PULSE 70; RESP 14; TEMP 98.2; O2SAT 99
[2024-06-10 06:56] LABS: BASOPHILS % (AUTO) 0.5 % (0-1); EOSINOPHILS # (AUTO) 0.1 X10'3 (0-0.9); EOSINOPHILS % (AUTO) 1.5 % (0-6); HEMATOCRIT 29.4 % (35.0-45.0); HEMOGLOBIN 9.5 g/dl (12.0-16.0); LYMPHOCYTES # (AUTO) 1.1 X10'3 (1.1-4.8); LYMPHOCYTES % (AUTO) 23.1 % (21-51); MEAN CORPUSCULAR HEMOGLOBIN 29.5 PG (27.0-31.0); MEAN CORPUSCULAR HGB CONC 32.2 g/dL (33.0-36.5); MEAN CORPUSCULAR VOLUME 91.8 FL (78-98); MEAN PLATELET VOLUME 7.5 FL (7.4-10.4); MONOCYTES # (AUTO) 0.6 X10'3 (0-0.9); MONOCYTES % (AUTO) 12.3 % (2-12); NEUTROPHILS # (AUTO) 3.1 X10'3 (1.8-7.7); NEUTROPHILS % (AUTO) 62.6 % (42-75); PLATELET COUNT 279 X10'3 (140-440); RED CELL DISTRIBUTION WIDTH 16.1 % (11.5-14.5)
[2024-06-10 07:00] LABS: INR 1.9 INR; PROTHROMBIN TIME 19.3 SECONDS (9.0-12.0)
[2024-06-10 07:35] LABS: ALANINE AMINOTRANSFERASE 7 U/L (12-78); ALBUMIN 2.1 G/DL (3.4-5.0); ALBUMIN/GLOBULIN RATIO 0.6 (1.1-1.5); ALKALINE PHOSPHATASE 108 IU/L (46-116); ANION GAP 3 (8-16); ASPARTATE AMINO TRANSFERASE 18 U/L (10-37); BILIRUBIN,TOTAL 0.3 MG/DL (0.1-1.0); BLOOD UREA NITROGEN 8 MG/DL (7-18); BUN/CREATININE RATIO 11.1 (10.0-20.0); CHLORIDE 100 MMOL/L (99-107); CREATININE 0.72 MG/DL (0.40-0.90); GLUCOSE 88 MG/DL (70-104); SODIUM 134 MMOL/L (135-145); TOTAL CARBON DIOXIDE 30.8 MMOL/L (24-32); TOTAL PROTEIN 5.8 G/DL (6.4-8.2); eCRCL 44 ML/MIN; eGFR 76 ML/MIN
[2024-06-10] MEDS ORDERED: lactulose 20gm/30ml cup PO PRN (07:55)
[2024-06-10] MEDS ORDERED: bisacodyl 10mg suppository rectal RC PRN (07:55)
[2024-06-10 09:30] VITALS: RESP 16; O2SAT 95
[2024-06-10 10:00] VITALS: BP 120/54; PULSE 68; RESP 16; TEMP 98.4; O2SAT 95
[2024-06-10] MEDS: lactose-reduced food (Ensure Enlive) - 237ml bottle PO SCH (12:30)
[2024-06-10] MEDS: mineral oil 133ml enema RC ONE (14:39)
[2024-06-10] MEDS: lactulose 20gm/30ml cup PO SCH (16:16)
[2024-06-10 18:00] VITALS: BP 124/55; PULSE 64; RESP 16; TEMP 98.3; O2SAT 94
[2024-06-10 20:00] VITALS: RESP 16; O2SAT 94
[2024-06-10] MEDS: warfarin 4mg tablet PO ONE (21:45)
[2024-06-10 22:00] VITALS: BP 164/69; PULSE 74; RESP 18; TEMP 98.4; O2SAT 95
[2024-06-11 06:00] VITALS: BP 117/55; PULSE 76; RESP 18; TEMP 98.3; O2SAT 96
[2024-06-11 07:25] LABS: BASOPHILS % (AUTO) 0.3 % (0-1); EOSINOPHILS # (AUTO) 0.1 X10'3 (0-0.9); EOSINOPHILS % (AUTO) 0.7 % (0-6); HEMATOCRIT 30.8 % (35.0-45.0); HEMOGLOBIN 9.9 g/dl (12.0-16.0); LYMPHOCYTES # (AUTO) 0.8 X10'3 (1.1-4.8); LYMPHOCYTES % (AUTO) 10.4 % (21-51); MEAN CORPUSCULAR HEMOGLOBIN 29.7 PG (27.0-31.0); MEAN CORPUSCULAR VOLUME 92.7 FL (78-98); MEAN PLATELET VOLUME 7.9 FL (7.4-10.4); MONOCYTES # (AUTO) 0.6 X10'3 (0-0.9); MONOCYTES % (AUTO) 8.1 % (2-12); NEUTROPHILS # (AUTO) 5.9 X10'3 (1.8-7.7); NEUTROPHILS % (AUTO) 80.5 % (42-75); PLATELET COUNT 280 X10'3 (140-440); RED BLOOD COUNT 3.33 X10'6 (4.20-5.60); RED CELL DISTRIBUTION WIDTH 16.8 % (11.5-14.5); WHITE BLOOD COUNT 7.3 X10'3 (4.5-11.0)
[2024-06-11 07:48] LABS: INR 1.9 INR; PROTHROMBIN TIME 18.9 SECONDS (9.0-12.0)
[2024-06-11] MEDS ORDERED: lactulose 20gm/30ml cup PO PRN (08:00)
[2024-06-11 08:04] LABS: ALANINE AMINOTRANSFERASE 8 U/L (12-78); ALBUMIN 2.4 G/DL (3.4-5.0); ALBUMIN/GLOBULIN RATIO 0.6 (1.1-1.5); ALKALINE PHOSPHATASE 116 IU/L (46-116); ANION GAP 5 (8-16); ASPARTATE AMINO TRANSFERASE 20 U/L (10-37); BILIRUBIN,TOTAL 0.3 MG/DL (0.1-1.0); BLOOD UREA NITROGEN 12 MG/DL (7-18); BUN/CREATININE RATIO 15.8 (10.0-20.0); CALCIUM 8.3 MG/DL (8.5-10.1); CHLORIDE 100 MMOL/L (99-107); CREATININE 0.76 MG/DL (0.40-0.90); GLUCOSE 120 MG/DL (70-104); POTASSIUM 3.6 MMOL/L (3.5-5.1); SODIUM 132 MMOL/L (135-145); TOTAL CARBON DIOXIDE 26.7 MMOL/L (24-32); TOTAL PROTEIN 6.3 G/DL (6.4-8.2); eCRCL 42 ML/MIN; eGFR 72 ML/MIN
[2024-06-11 10:00] VITALS: BP 107/49; PULSE 63; RESP 14; TEMP 98.7; O2SAT 96
[2024-06-11 18:00] VITALS: BP 138/56; PULSE 65; RESP 14; TEMP 97.7; O2SAT 99
[2024-06-11 20:00] VITALS: RESP 15; O2SAT 95
[2024-06-11] MEDS: warfarin 4mg tablet PO ONE (20:22)
[2024-06-11 22:00] VITALS: BP 127/49; PULSE 79; RESP 16; TEMP 98.4; O2SAT 97
[2024-06-12 06:00] VITALS: BP 112/72; PULSE 69; RESP 16; TEMP 97.8; O2SAT 94
[2024-06-12 06:57] LABS: INR 1.8 INR
[2024-06-12 08:00] VITALS: RESP 16; O2SAT 94
[2024-06-12 19:00] VITALS: BP 112/44; PULSE 77; RESP 17; TEMP 98.4; O2SAT 96
[2024-06-12] MEDS: mag hydrox/Alum hydrox/simeth 30ml oral suspension PO PRN (19:07)
[2024-06-12] MEDS: warfarin 5mg tablet PO ONE (21:00)
[2024-06-12 22:00] VITALS: BP 114/48; PULSE 72; RESP 16; TEMP 98; O2SAT 94
[2024-06-13 06:00] VITALS: BP 133/67; PULSE 64; RESP 18; TEMP 97.8; O2SAT 98
[2024-06-13 06:21] LABS: INR 1.6 INR; PROTHROMBIN TIME 15.8 SECONDS (9.0-12.0)
[2024-06-13 10:00] VITALS: BP 118/42; PULSE 71; RESP 16; TEMP 98.4; O2SAT 96
[2024-06-13 15:34] LABS: BASOPHILS % (AUTO) 0.4 % (0-1); EOSINOPHILS % (AUTO) 0.9 % (0-6); HEMATOCRIT 29.9 % (35.0-45.0); HEMOGLOBIN 9.8 g/dl (12.0-16.0); LYMPHOCYTES # (AUTO) 0.8 X10'3 (1.1-4.8); LYMPHOCYTES % (AUTO) 13.2 % (21-51); MEAN CORPUSCULAR HEMOGLOBIN 30.2 PG (27.0-31.0); MEAN CORPUSCULAR HGB CONC 32.7 g/dL (33.0-36.5); MEAN CORPUSCULAR VOLUME 92.2 FL (78-98); MEAN PLATELET VOLUME 7.7 FL (7.4-10.4); MONOCYTES # (AUTO) 0.7 X10'3 (0-0.9); MONOCYTES % (AUTO) 11.8 % (2-12); NEUTROPHILS # (AUTO) 4.3 X10'3 (1.8-7.7); NEUTROPHILS % (AUTO) 73.7 % (42-75); PLATELET COUNT 269 X10'3 (140-440); RED BLOOD COUNT 3.24 X10'6 (4.20-5.60); RED CELL DISTRIBUTION WIDTH 17.7 % (11.5-14.5); WHITE BLOOD COUNT 5.8 X10'3 (4.5-11.0)
[2024-06-13 18:00] VITALS: BP 117/52; PULSE 51; RESP 12; TEMP 98.4; O2SAT 92
[2024-06-13] MEDS: warfarin 5mg tablet PO ONE (21:23)
[2024-06-13 22:00] VITALS: BP 137/49; PULSE 63; RESP 18; TEMP 98.7; O2SAT 97
[2024-06-14] VITALS (8 sets, daily range): BP systolic 98–139; BP diastolic 41–60; PULSE 62–70; RESP 14–18; TEMP 97.5–98.9; O2SAT 96–98
[2024-06-14 06:40] LABS: INR 1.5 INR; PROTHROMBIN TIME 15.1 SECONDS (9.0-12.0)
[2024-06-14] MEDS: warfarin 5mg tablet PO ONE (20:43)
[2024-06-15] VITALS (9 sets, daily range): BP systolic 106–138; BP diastolic 43–69; PULSE 60–104; RESP 13–19; TEMP 97.4–97.9; O2SAT 95–100
[2024-06-15 08:15] LABS: INR 1.5 INR; PROTHROMBIN TIME 15.1 SECONDS (9.0-12.0)
[2024-06-15 08:30] LABS: ALANINE AMINOTRANSFERASE 8 U/L (12-78); ALBUMIN 2.4 G/DL (3.4-5.0); ALBUMIN/GLOBULIN RATIO 0.6 (1.1-1.5); ALKALINE PHOSPHATASE 109 IU/L (46-116); ANION GAP 4 (8-16); ASPARTATE AMINO TRANSFERASE 16 U/L (10-37); BILIRUBIN,TOTAL 0.3 MG/DL (0.1-1.0); BLOOD UREA NITROGEN 13 MG/DL (7-18); BUN/CREATININE RATIO 17.3 (10.0-20.0); CALCIUM 8.2 MG/DL (8.5-10.1); CHLORIDE 98 MMOL/L (99-107); CREATININE 0.75 MG/DL (0.40-0.90); GLUCOSE 88 MG/DL (70-104); POTASSIUM 4.4 MMOL/L (3.5-5.1); SODIUM 130 MMOL/L (135-145); TOTAL PROTEIN 6.2 G/DL (6.4-8.2); eCRCL 42 ML/MIN; eGFR 73 ML/MIN
[2024-06-15 08:53] LABS: BASOPHILS % (AUTO) 0.8 % (0-1); EOSINOPHILS # (AUTO) 0.1 X10'3 (0-0.9); EOSINOPHILS % (AUTO) 1.6 % (0-6); HEMATOCRIT 33.7 % (35.0-45.0); HEMOGLOBIN 10.7 g/dl (12.0-16.0); LYMPHOCYTES # (AUTO) 0.9 X10'3 (1.1-4.8); LYMPHOCYTES % (AUTO) 19.5 % (21-51); MEAN CORPUSCULAR HEMOGLOBIN 30.6 PG (27.0-31.0); MEAN CORPUSCULAR HGB CONC 31.8 g/dL (33.0-36.5); MEAN CORPUSCULAR VOLUME 96.1 FL (78-98); MEAN PLATELET VOLUME 7.9 FL (7.4-10.4); MONOCYTES # (AUTO) 0.5 X10'3 (0-0.9); MONOCYTES % (AUTO) 12.4 % (2-12); NEUTROPHILS # (AUTO) 2.9 X10'3 (1.8-7.7); NEUTROPHILS % (AUTO) 65.7 % (42-75); PLATELET COUNT 287 X10'3 (140-440); RED CELL DISTRIBUTION WIDTH 18.9 % (11.5-14.5); WHITE BLOOD COUNT 4.4 X10'3 (4.5-11.0)
[2024-06-15] MEDS: acetaminophen 325mg tablet PO PRN (22:26)
[2024-06-15] MEDS: warfarin 2.5mg tablet PO ONE (22:27)
[2024-06-15] MEDS: warfarin 5mg tablet PO ONE (22:28)
[2024-06-16] VITALS (8 sets, daily range): BP systolic 111–140; BP diastolic 38–57; PULSE 63–74; RESP 11–20; TEMP 96.6–98.2; O2SAT 95–98
[2024-06-16 06:52] LABS: EOSINOPHILS # (AUTO) 0.1 X10'3 (0-0.9); EOSINOPHILS % (AUTO) 1.9 % (0-6); HEMATOCRIT 30.7 % (35.0-45.0); HEMOGLOBIN 9.9 g/dl (12.0-16.0); LYMPHOCYTES % (AUTO) 24.5 % (21-51); MEAN CORPUSCULAR HGB CONC 32.4 g/dL (33.0-36.5); MEAN CORPUSCULAR VOLUME 92.7 FL (78-98); MEAN PLATELET VOLUME 7.6 FL (7.4-10.4); MONOCYTES # (AUTO) 0.5 X10'3 (0-0.9); NEUTROPHILS # (AUTO) 2.4 X10'3 (1.8-7.7); NEUTROPHILS % (AUTO) 59.6 % (42-75); PLATELET COUNT 254 X10'3 (140-440); RED BLOOD COUNT 3.31 X10'6 (4.20-5.60); RED CELL DISTRIBUTION WIDTH 18.2 % (11.5-14.5)
[2024-06-16 07:04] LABS: INR 1.5 INR; PROTHROMBIN TIME 14.8 SECONDS (9.0-12.0)
[2024-06-16 07:32] LABS: ALANINE AMINOTRANSFERASE 12 U/L (12-78); ALBUMIN 2.4 G/DL (3.4-5.0); ALBUMIN/GLOBULIN RATIO 0.7 (1.1-1.5); ALKALINE PHOSPHATASE 104 IU/L (46-116); ANION GAP 3 (8-16); ASPARTATE AMINO TRANSFERASE 19 U/L (10-37); BILIRUBIN,TOTAL 0.2 MG/DL (0.1-1.0); BLOOD UREA NITROGEN 17 MG/DL (7-18); CALCIUM 8.2 MG/DL (8.5-10.1); CHLORIDE 99 MMOL/L (99-107); CREATININE 0.74 MG/DL (0.40-0.90); GLUCOSE 90 MG/DL (70-104); POTASSIUM 4.4 MMOL/L (3.5-5.1); SODIUM 132 MMOL/L (135-145); TOTAL CARBON DIOXIDE 29.7 MMOL/L (24-32); TOTAL PROTEIN 5.7 G/DL (6.4-8.2); eCRCL 43 ML/MIN; eGFR 74 ML/MIN
[2024-06-16] MEDS ORDERED: AMOX-580 PO (09:43)
[2024-06-16] MEDS ORDERED: LACT1CAP76 PO (09:43)
[2024-06-16] MEDS ORDERED: OXYC1TAB17 PO (10:49)
[2024-06-16] MEDS: warfarin 7.5mg tablet PO ONE (21:01)
[2024-06-17] VITALS (7 sets, daily range): BP systolic 102–129; BP diastolic 41–74; PULSE 66–84; RESP 18–20; TEMP 97–97.9; O2SAT 92–99
[2024-06-17 08:10] LABS: BASOPHILS % (AUTO) 0.7 % (0-1); EOSINOPHILS # (AUTO) 0.1 X10'3 (0-0.9); EOSINOPHILS % (AUTO) 1.1 % (0-6); HEMATOCRIT 33.8 % (35.0-45.0); INR 1.5 INR; LYMPHOCYTES # (AUTO) 1.2 X10'3 (1.1-4.8); LYMPHOCYTES % (AUTO) 22.1 % (21-51); MEAN CORPUSCULAR HEMOGLOBIN 30.2 PG (27.0-31.0); MEAN CORPUSCULAR HGB CONC 32.5 g/dL (33.0-36.5); MEAN CORPUSCULAR VOLUME 92.8 FL (78-98); MEAN PLATELET VOLUME 7.9 FL (7.4-10.4); MONOCYTES # (AUTO) 0.6 X10'3 (0-0.9); MONOCYTES % (AUTO) 10.7 % (2-12); NEUTROPHILS # (AUTO) 3.4 X10'3 (1.8-7.7); NEUTROPHILS % (AUTO) 65.4 % (42-75); PLATELET COUNT 282 X10'3 (140-440); PROTHROMBIN TIME 15.6 SECONDS (9.0-12.0); RED BLOOD COUNT 3.64 X10'6 (4.20-5.60); WHITE BLOOD COUNT 5.2 X10'3 (4.5-11.0)
[2024-06-17 08:43] LABS: PLATELET ESTIMATE NORMAL
[2024-06-17 08:44] LABS: ACANTHOCYTES 1+; ANISOCYTOSIS 2+; BURR CELLS 1+
[2024-06-17 08:49] LABS: ALANINE AMINOTRANSFERASE 10 U/L (12-78); ALBUMIN 2.7 G/DL (3.4-5.0); ALBUMIN/GLOBULIN RATIO 0.7 (1.1-1.5); ALKALINE PHOSPHATASE 119 IU/L (46-116); ANION GAP 4 (8-16); ASPARTATE AMINO TRANSFERASE 14 U/L (10-37); BILIRUBIN,TOTAL 0.4 MG/DL (0.1-1.0); BLOOD UREA NITROGEN 14 MG/DL (7-18); BUN/CREATININE RATIO 19.4 (10.0-20.0); CALCIUM 8.5 MG/DL (8.5-10.1); CHLORIDE 98 MMOL/L (99-107); CREATININE 0.72 MG/DL (0.40-0.90); GLUCOSE 88 MG/DL (70-104); POTASSIUM 4.3 MMOL/L (3.5-5.1); SODIUM 131 MMOL/L (135-145); TOTAL CARBON DIOXIDE 28.6 MMOL/L (24-32); TOTAL PROTEIN 6.5 G/DL (6.4-8.2); eCRCL 44 ML/MIN; eGFR 76 ML/MIN
[2024-06-17] MEDS: warfarin 7.5mg tablet PO ONE (21:26)
[2024-06-18 02:00] VITALS: BP 140/58; PULSE 74; RESP 13; TEMP 97.1; O2SAT 98
[2024-06-18 07:00] VITALS: BP 132/55; PULSE 62; RESP 11; TEMP 97.8; O2SAT 96
[2024-06-18 08:01] LABS: BASOPHILS % (AUTO) 0.9 % (0-1); EOSINOPHILS % (AUTO) 1.2 % (0-6); HEMATOCRIT 34.4 % (35.0-45.0); HEMOGLOBIN 11.1 g/dl (12.0-16.0); INR 1.7 INR; LYMPHOCYTES # (AUTO) 0.9 X10'3 (1.1-4.8); LYMPHOCYTES % (AUTO) 22.5 % (21-51); MEAN CORPUSCULAR HEMOGLOBIN 30.3 PG (27.0-31.0); MEAN CORPUSCULAR HGB CONC 32.2 g/dL (33.0-36.5); MEAN CORPUSCULAR VOLUME 93.9 FL (78-98); MEAN PLATELET VOLUME 7.9 FL (7.4-10.4); MONOCYTES # (AUTO) 0.4 X10'3 (0-0.9); MONOCYTES % (AUTO) 10.8 % (2-12); NEUTROPHILS # (AUTO) 2.7 X10'3 (1.8-7.7); NEUTROPHILS % (AUTO) 64.6 % (42-75); PLATELET COUNT 245 X10'3 (140-440); PROTHROMBIN TIME 16.7 SECONDS (9.0-12.0); RED BLOOD COUNT 3.66 X10'6 (4.20-5.60); RED CELL DISTRIBUTION WIDTH 19.1 % (11.5-14.5); WHITE BLOOD COUNT 4.1 X10'3 (4.5-11.0)
[2024-06-18 08:31] LABS: ALANINE AMINOTRANSFERASE 8 U/L (12-78); ALBUMIN 2.6 G/DL (3.4-5.0); ALBUMIN/GLOBULIN RATIO 0.7 (1.1-1.5); ALKALINE PHOSPHATASE 115 IU/L (46-116); ANION GAP 6 (8-16); ASPARTATE AMINO TRANSFERASE 17 U/L (10-37); BILIRUBIN,TOTAL 0.4 MG/DL (0.1-1.0); BLOOD UREA NITROGEN 18 MG/DL (7-18); CALCIUM 8.4 MG/DL (8.5-10.1); CHLORIDE 100 MMOL/L (99-107); CREATININE 0.72 MG/DL (0.40-0.90); GLUCOSE 86 MG/DL (70-104); POTASSIUM 4.3 MMOL/L (3.5-5.1); SODIUM 132 MMOL/L (135-145); TOTAL CARBON DIOXIDE 26.3 MMOL/L (24-32); TOTAL PROTEIN 6.4 G/DL (6.4-8.2); eCRCL 44 ML/MIN; eGFR 76 ML/MIN
[2024-06-18 08:45] VITALS: RESP 12; O2SAT 96
[2024-06-18 10:28] LABS: ANISOCYTOSIS 2+; BURR CELLS 1+; PLATELET ESTIMATE NORMAL
[2024-06-18 10:29] LABS: ACANTHOCYTES FEW
[2024-06-18 11:30] VITALS: BP 117/52; PULSE 68; RESP 13; TEMP 98.4; O2SAT 97
[2024-06-18] MEDS: lactose-reduced food (Ensure Enlive) - 237ml bottle PO SCH (13:57)
[2024-06-18 18:00] VITALS: BP 115/53; PULSE 98; RESP 18; TEMP 97.7; O2SAT 94
[2024-06-18] MEDS: warfarin 3mg tablet PO ONE (20:12)
[2024-06-18 22:00] VITALS: BP 115/47; PULSE 67; RESP 16; TEMP 98.5; O2SAT 95
[2024-06-19 02:00] VITALS: BP 112/50; PULSE 65; RESP 16; TEMP 97.7; O2SAT 96
[2024-06-19 07:16] VITALS: BP 118/48; PULSE 64; RESP 16; TEMP 97.6; O2SAT 95
[2024-06-19 08:26] LABS: BASOPHILS % (AUTO) 0.8 % (0-1); EOSINOPHILS # (AUTO) 0.1 X10'3 (0-0.9); EOSINOPHILS % (AUTO) 1.5 % (0-6); HEMATOCRIT 33.4 % (35.0-45.0); HEMOGLOBIN 10.8 g/dl (12.0-16.0); LYMPHOCYTES # (AUTO) 1.1 X10'3 (1.1-4.8); LYMPHOCYTES % (AUTO) 27.6 % (21-51); MEAN CORPUSCULAR HEMOGLOBIN 30.3 PG (27.0-31.0); MEAN CORPUSCULAR HGB CONC 32.5 g/dL (33.0-36.5); MEAN CORPUSCULAR VOLUME 93.2 FL (78-98); MEAN PLATELET VOLUME 8.1 FL (7.4-10.4); MONOCYTES # (AUTO) 0.5 X10'3 (0-0.9); NEUTROPHILS # (AUTO) 2.2 X10'3 (1.8-7.7); NEUTROPHILS % (AUTO) 57.1 % (42-75); PLATELET COUNT 255 X10'3 (140-440); RED BLOOD COUNT 3.58 X10'6 (4.20-5.60); RED CELL DISTRIBUTION WIDTH 19.3 % (11.5-14.5); WHITE BLOOD COUNT 3.9 X10'3 (4.5-11.0)
[2024-06-19 08:30] VITALS: RESP 15; O2SAT 95
[2024-06-19 08:32] LABS: INR 1.8 INR
[2024-06-19 08:43] LABS: ALANINE AMINOTRANSFERASE 14 U/L (12-78); ALBUMIN 2.6 G/DL (3.4-5.0); ALBUMIN/GLOBULIN RATIO 0.7 (1.1-1.5); ALKALINE PHOSPHATASE 110 IU/L (46-116); ANION GAP 3 (8-16); ASPARTATE AMINO TRANSFERASE 17 U/L (10-37); BILIRUBIN,TOTAL 0.3 MG/DL (0.1-1.0); BLOOD UREA NITROGEN 21 MG/DL (7-18); BUN/CREATININE RATIO 27.6 (10.0-20.0); CALCIUM 8.4 MG/DL (8.5-10.1); CHLORIDE 100 MMOL/L (99-107); CREATININE 0.76 MG/DL (0.40-0.90); GLUCOSE 84 MG/DL (70-104); POTASSIUM 4.5 MMOL/L (3.5-5.1); SODIUM 134 MMOL/L (135-145); TOTAL CARBON DIOXIDE 30.6 MMOL/L (24-32); TOTAL PROTEIN 6.3 G/DL (6.4-8.2); eCRCL 42 ML/MIN; eGFR 72 ML/MIN
[2024-06-19 11:24] VITALS: BP 110/50; PULSE 66; RESP 15; TEMP 97.5; O2SAT 96
[2024-06-19] MEDS: lactulose 20gm/30ml cup PO SCH (14:00)
[2024-06-19 15:30] VITALS: BP 112/50; PULSE 70; RESP 16; TEMP 97.3; O2SAT 95
[2024-06-19] MEDS: warfarin 3mg tablet PO ONE (20:00)
[2024-06-19 22:00] VITALS: BP 123/45; PULSE 67; RESP 14; TEMP 97.3; O2SAT 95
[2024-06-20 02:00] VITALS: BP 122/59; PULSE 65; RESP 15; TEMP 97.3; O2SAT 96
[2024-06-20 06:00] VITALS: BP 114/90; PULSE 79; RESP 18; TEMP 97.8; O2SAT 96
[2024-06-20 07:25] LABS: INR 1.8 INR; PROTHROMBIN TIME 17.7 SECONDS (9.0-12.0)
[2024-06-20 08:00] VITALS: RESP 18; O2SAT 96
[2024-06-20] MEDS ORDERED: LACT10SO78 PO (10:27)
[2024-06-20 12:50] VITALS: RESP 17
[2024-06-20] MEDS ORDERED: warfarin 7.5mg tablet PO ONE (21:00)
== END 2024-06-20 14:23 | disposition home health service (06) | DRG 862 ==
LOC: ER 15:36 → ED HOLD 23:09 → EDBEDREQ 06-01 02:55 → ORTHO 4S 06-01 05:50 → PCU 3S 06-14 11:35
PROVIDERS: ADMIT Internal Medicine Pulmonary Disease; ATTEND Family Medicine
DX: T81.41XA Infection following a procedure, superficial incisional surgical site, initial encounter (principal); N17.0 Acute kidney failure with tubular necrosis; L03.115 Cellulitis of right lower limb; E87.1 Hypo-osmolality and hyponatremia; Z16.24 Resistance to multiple antibiotics; D50.9 Iron deficiency anemia, unspecified; E78.5 Hyperlipidemia, unspecified; I48.91 Unspecified atrial fibrillation; Z96.653 Presence of artificial knee joint, bilateral; F32.A Depression, unspecified; F41.9 Anxiety disorder, unspecified; K56.41 Fecal impaction; B95.61 Methicillin susceptible Staphylococcus aureus infection as the cause of diseases classified elsewhere; Z79.01 Long term (current) use of anticoagulants; Z95.2 Presence of prosthetic heart valve; Y84.8 Other medical procedures as the cause of abnormal reaction of the patient, or of later complication, without mention of misadventure at the time of the procedure; Y92.89 Other specified places as the place of occurrence of the external cause
CPT/HCPCS: 36410; 36415; 71045; 73502; 73552; 73590; 73700; 74018; 76942; 80048; 80053; 80061; 81001; 82728; 83036; 83540; 83550; 83605; 83735; 84145; 85007; 85008; 85025; 85610; 87040; 87070; 87077; 87081; 87088; 87186; 93005; 96365; 97110; 97116; 97162; 97530; 97535; 99285; A6196; A6212; A6213; A6222; A6258; A6266; A6407; A6449; C1751; G0378; J0690; J0692; J0696; J1756; J2270; J3370; J7030; J7040; J7050